=== PATIENT | female | born 1975 | race Caucasian/White ===

== ENCOUNTER → 2017-08-04 | Outpatient (CLI) | payer BC, OTHER ==
[~2017-08-04] MED LIST: ACE3 PO; CIM300 PO; DABR50CA PO; IBU200 PO; IBU800 PO; IRON1TAB55 PO; LEVO-85 PO; PROC10TA4 PO; TRAM2TAB PO; [UNRECOGNIZED DRUG - OTHER] IJ ONE
== END ==
LOC: SPU 14:28
PROVIDERS: ATTEND Internal Medicine
DX: C43.9 Malignant melanoma of skin, unspecified (principal)

== ENCOUNTER → 2017-08-25 | Outpatient (CLI) | payer BC, OTHER ==
[~2017-08-25] MED LIST changes: +[UNRECOGNIZED DRUG - OTHER] IJ ONE
== END ==
LOC: SPU 10:06
PROVIDERS: ATTEND Internal Medicine
DX: C79.9 Secondary malignant neoplasm of unspecified site (principal)
CPT/HCPCS: J9325

== ENCOUNTER → 2017-09-07 | Outpatient (CLI) | payer BC, OTHER ==
[~2017-09-07] MED LIST changes: -[UNRECOGNIZED DRUG - OTHER] IJ ONE
== END ==
LOC: SPU 07:41
PROVIDERS: ATTEND Internal Medicine
DX: C43.9 Malignant melanoma of skin, unspecified (principal); C79.9 Secondary malignant neoplasm of unspecified site
CPT/HCPCS: 96406; J9325

== ENCOUNTER → 2017-09-21 | Outpatient (CLI) | payer BC, OTHER ==
[~2017-09-21] MED LIST changes: +DEXA2TAB7 PO
== END ==
LOC: SPU 12:35
PROVIDERS: ATTEND Internal Medicine
DX: C43.9 Malignant melanoma of skin, unspecified (principal)

== ENCOUNTER 2017-10-02 14:12 | Emergency (ER) | payer BC ==
[~2017-10-02 14:12] MED LIST changes: -[UNRECOGNIZED DRUG - OTHER] IJ ONE
[2017-10-02] MEDS ORDERED: ONDANSETRON 4 MG/2 ML VIAL ONE (15:09)
--- NOTE | 2017-10-02 15:18 | ER Report ---
History and Physical Time Seen By MD: 14:32 Hx. of Stated Complaint: N/V SINCE WEDNESDAY. HPI/ROS CHIEF COMPLAINT: nausea and vomiting. HISTORY OF PRESENT ILLNESS: This is a 41-year-old female. She has a history of melanoma which is metastatic to lung and brain. Has been on chemotherapy in the past. Currently with full brain radiation that she just started last week on . Since starting the radiation, she had 2 treatments, and has had ongoing nausea and vomiting. She also has continued intermittent headaches which do not really seem any worse than what she has been experiencing. She has Zofran and Compazine at home but this is not helping. She denies any fevers or chills. 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 She is not experiencing any focal weakness at this time. No numbness. No real dizziness more than normal as well. She has not been able to eat or drink much since and is even throwing up her nausea medicines. No pain in the extremities or neck or back. She denies any chest pain or palpitations. She is not short of breath. She is urinating less but denies dysuria. No problems with her bowels. Allergies: Coded Allergies: latex (Verified Allergy, Mild, IRRITATES SKIN, 10/02/17) Home Meds Active Scripts Ondansetron (ZOFRAN ODT) 4 Mg Tab.rapdis, 4 MG PO Q6H Y for NAUSEA/VOMITING, # 20 TAB.JOY 0 Refills Prov:JULES ROSAS MD 10/02/17 Hydrocodone Bit/Acetaminophen (HYDROCODON-ACETAMINOPHEN 5-325) 1 Each Tablet, 1 EACH PO Q4H Y for PAIN, #12 TAB 0 Refills Prov:JULES ROSAS MD 10/02/17 Dexamethasone (DEXAMETHASONE) 2 Mg Tablet, 4 MG PO DAILY for 3 Days, #9 TAB Take 4mg daily x 3 days then 2mg daily x 3 days then DC Prov:[facility] M[facility]ER-BC, ONC 09/21/17 Reported Medications Prochlorperazine Maleate (Compazine) 10 Mg Tablet, PO QDAY 06/28/16 Ibuprofen (Motrin) 800 Mg Tab, 800 MG PO Q8H, #30 0 Refills TAKE NEEDED FOR PAIN 11/15/09 Reviewed Nurses Notes: Yes Hx Smoking: No Smoking Status: Never Smoker Exposure to Second Hand Smoke?: No Hx Substance Use Disorder: No Constitutional Vital Sign - Last 24 Hours 10/02/17 10/02/17 10/02/17 10/02/17 14:29 15:00 15:15 16:00 Temp 98.7 Pulse 84 76 72 Resp 16 B/P (MAP) 126/86 122/80 (94) 106/76 (86) Pulse Ox 91 93 95 O2 Delivery Room Air 10/02/17 10/02/17 10/02/17 10/02/17 16:00 16:30 16:45 17:00 Pulse 78 71 B/P (MAP) 106/76 (86) 100/67 (78) 106/71 (83) Pulse Ox 94 91 95 10/02/17 10/02/17 10/02/17 10/02/17 17:15 17:38 17:45 18:00 Pulse 68 66 B/P (MAP) 111/71 (84) Pulse Ox 98 89 10/02/17 18:13 Pulse 86 Resp 14 B/P (MAP) 113/78 (90) Pulse Ox 96 O2 Delivery Room Air Intake and Output 10/02/17 10/02/17 10/03/17 15:00 23:00 07:00 Intake Total 1500 ml Balance 1500 ml Physical Exam General Appearance: The patient is alert. No acute distress. Eyes: Pupils are equal, round. Reactive to light. No pallor, injection or icterus. Extraocular movements are intact. No nystagmus. Normal peripheral visual ross by direct confrontation. ENT: Mucous membranes are dry. Normal oral mucosa. Posterior oropharynx is normal. Normal nasal mucosa. Normal tympanic membranes and canals. Neck: Supple and non tender. Respiratory: Lungs are clear to auscultation. Cardiovascular: Regular rate and rhythm. No murmurs, gallops or rubs. Normal capillary refill. Gastrointestinal: Abdomen is soft and non tender. Nondistended. Normal active bowel sounds. Neurological: Alert and oriented x3. Cranial nerves II through XII show no acute deficits on my exam. No focal neurologic deficits in the extremities. Skin: Warm and dry. No rashes. Musculoskeletal: Extremities are nontender. Full range of motion. No tenderness in palpation of the spine. DIFFERENTIAL DIAGNOSIS: After history and physical exam, differential diagnosis was considered for headache, nausea and vomiting in a patient with radiation treatment to the brain for metastatic melanoma to the brain. Check labs, provide IV fluids, check urinalysis, provide antiemetics, and we'll check a CT scan to rule out any other problems causing the headaches and nausea and vomiting. Medical Decision Making Data Points Result Diagram: 10/02/17 0000 10/02/17 0000 Laboratory Hematology Test 10/02/17 00:00 10/02/17 17:32 Red Blood Count 5.50 M/uL (4.17-5.56) Mean Corpuscular Volume 89.8 fL (80.0-96.0) Mean Corpuscular Hemoglobin 30.8 pg (26.0-33.0) Mean Corpuscular Hemoglobin Concent 34.3 g/dL (32.0-36.0) Red Cell Distribution Width 13.7 % (11.5-14.5) Mean Platelet Volume 8.2 fL (7.2-11.1) Neutrophils (%) (Auto) % (39.4-72.5) Lymphocytes (%) (Auto) % (17.6-49.6) Monocytes (%) (Auto) % (4.1-12.4) Eosinophils (%) (Auto) % (0.4-6.7) Basophils (%) (Auto) % (0.3-1.4) Nucleated RBC Relative Count (auto) /100WBC Neutrophils # (Auto) K/uL (2.0-7.4) Lymphocytes # (Auto) K/uL (1.3-3.6) Monocytes # (Auto) K/uL (0.3-1.0) Eosinophils # (Auto) K/uL (0.0-0.5) Basophils # (Auto) K/uL (0.0-0.1) Nucleated RBC Absolute Count (auto) K/uL Neutrophils % (Manual) 74 % (39.4-72.5) Lymphocytes % (Manual) 19 % (17.6-49.6) Monocytes % (Manual) 5 % (4.1-12.4) Eosinophils % (Manual) 1 % (0.4-6.7) Basophils % (Manual) 1 % (0.3-1.4) Erythrocyte Sedimentation Rate 7 mm/HOUR (0-20) Sodium Level 140 mmol/L (137-145) Potassium Level 4.1 mmol/L (3.5-5.0) Chloride Level 103 mmol/L (98-107) Carbon Dioxide Level 21 mmol/L (22-31) Blood Urea Nitrogen 14 mg/dl (7-18) Creatinine 0.80 mg/dl (0.52-1.04) Glomerular Filtration Rate Calc > 60.0 Random Glucose 104 mg/dl (75-110) Calcium Level 11.8 mg/dl (8.4-10.2) Total Bilirubin 2.0 mg/dl (0.2-1.3) Aspartate Amino Transf (AST/SGOT) 29 U/L (0-35) Alanine Aminotransferase (ALT/SGPT) 55 U/L (0-56) Alkaline Phosphatase 105 U/L (0-126) C-Reactive Protein < 0.5 mg/dl (<1.0) Total Protein 7.6 gm/dl (6.3-8.2) Albumin 4.5 g/dl (3.5-5.0) Urine Color Yellow Urine Clarity Clear Urine pH 6.0 pH (4.8-9.5) Urine Specific Stanton 1.024 Urine Protein 100 mg/dL (NEGATIVE) Urine Glucose (UA) Negative mg/dL (NEGATIVE) Urine Ketones 20 mg/dL (NEGATIVE) Urine Blood Negative (NEGATIVE) Urine Nitrite Negative (NEGATIVE) Urine Bilirubin Negative (NEGATIVE) Urine Urobilinogen 4.0 mg/dL (0.2-1.9) Urine Leukocyte Esterase Negative (NEGATIVE) Urine RBC 2 /HPF (0-2/HPF) Urine WBC 4 /HPF (0-5/HPF) Urine Squamous Epithelial Cells Many /LPF (</=FEW) Urine Bacteria Few /HPF (NONE-FEW) Urine Hyaline Casts Few /LPF (NONE-FEW) Urine Mucus Few /HPF (NONE-FEW) Chemistry Test 10/02/17 00:00 10/02/17 17:32 White Blood Count 11.5 k/uL (4.5-11.0) Red Blood Count 5.50 M/uL (4.17-5.56) Hemoglobin 17.0 g/dL (12.0-16.0) Hematocrit 49.4 % (34.0-47.0) Mean Corpuscular Volume 89.8 fL (80.0-96.0) Mean Corpuscular Hemoglobin 30.8 pg (26.0-33.0) Mean Corpuscular Hemoglobin Concent 34.3 g/dL (32.0-36.0) Red Cell Distribution Width 13.7 % (11.5-14.5) Platelet Count 347 K/uL (150-450) Mean Platelet Volume 8.2 fL (7.2-11.1) Neutrophils (%) (Auto) % (39.4-72.5) Lymphocytes (%) (Auto) % (17.6-49.6) Monocytes (%) (Auto) % (4.1-12.4) Eosinophils (%) (Auto) % (0.4-6.7) Basophils (%) (Auto) % (0.3-1.4) Nucleated RBC Relative Count (auto) /100WBC Neutrophils # (Auto) K/uL (2.0-7.4) Lymphocytes # (Auto) K/uL (1.3-3.6) Monocytes # (Auto) K/uL (0.3-1.0) Eosinophils # (Auto) K/uL (0.0-0.5) Basophils # (Auto) K/uL (0.0-0.1) Nucleated RBC Absolute Count (auto) K/uL Neutrophils % (Manual) 74 % (39.4-72.5) Lymphocytes % (Manual) 19 % (17.6-49.6) Monocytes % (Manual) 5 % (4.1-12.4) Eosinophils % (Manual) 1 % (0.4-6.7) Basophils % (Manual) 1 % (0.3-1.4) Erythrocyte Sedimentation Rate 7 mm/HOUR (0-20) Glomerular Filtration Rate Calc > 60.0 Calcium Level 11.8 mg/dl (8.4-10.2) Total Bilirubin 2.0 mg/dl (0.2-1.3) Aspartate Amino Transf (AST/SGOT) 29 U/L (0-35) Alanine Aminotransferase (ALT/SGPT) 55 U/L (0-56) Alkaline Phosphatase 105 U/L (0-126) C-Reactive Protein < 0.5 mg/dl (<1.0) Total Protein 7.6 gm/dl (6.3-8.2) Albumin 4.5 g/dl (3.5-5.0) Urine Color Yellow Urine Clarity Clear Urine pH 6.0 pH (4.8-9.5) Urine Specific Stanton 1.024 Urine Protein 100 mg/dL (NEGATIVE) Urine Glucose (UA) Negative mg/dL (NEGATIVE) Urine Ketones 20 mg/dL (NEGATIVE) Urine Blood Negative (NEGATIVE) Urine Nitrite Negative (NEGATIVE) Urine Bilirubin Negative (NEGATIVE) Urine Urobilinogen 4.0 mg/dL (0.2-1.9) Urine Leukocyte Esterase Negative (NEGATIVE) Urine RBC 2 /HPF (0-2/HPF) Urine WBC 4 /HPF (0-5/HPF) Urine Squamous Epithelial Cells Many /LPF (</=FEW) Urine Bacteria Few /HPF (NONE-FEW) Urine Hyaline Casts Few /LPF (NONE-FEW) Urine Mucus Few /HPF (NONE-FEW) Urinalysis Test 10/02/17 17:32 Urine Color Yellow Urine Clarity Clear Urine pH 6.0 pH (4.8-9.5) Urine Specific Stanton 1.024 Urine Protein 100 mg/dL (NEGATIVE) Urine Glucose (UA) Negative mg/dL (NEGATIVE) Urine Ketones 20 mg/dL (NEGATIVE) Urine Blood Negative (NEGATIVE) Urine Nitrite Negative (NEGATIVE) Urine Bilirubin Negative (NEGATIVE) Urine Urobilinogen 4.0 mg/dL (0.2-1.9) Urine Leukocyte Esterase Negative (NEGATIVE) Urine RBC 2 /HPF (0-2/HPF) Urine WBC 4 /HPF (0-5/HPF) Urine Squamous Epithelial Cells Many /LPF (</=FEW) Urine Bacteria Few /HPF (NONE-FEW) Urine Hyaline Casts Few /LPF (NONE-FEW) Urine Mucus Few /HPF (NONE-FEW) EKG/Imaging Imaging CT Head without contrast Indication: Headache and dizziness. 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 Comparison: None available Technique: Axial CT images were obtained through the brain from the skull base to the vertex without administration of IV contrast. Reformatted coronal and sagittal images were also obtained. One of the following dose optimization techniques was utilized in the performance of this exam: automated exposure control; adjustment of the mA and/ or kV according to the patient's size; or use of an iterative reconstruction technique. Specific details can be referenced in the facility's radiology CT exam operational policy. Findings: No intracranial bleed, midline shift, extra-axial fluid collection or hydrocephalus. The right lateral temporal lobe does show a 1.6 cm hyperdense mass with mild surrounding edema. There is no indication of midline shift. Along the midline of the brain just above the ventricles is a hyperdense nodule measuring 6 mm without edema or sequelae. No other discrete lesions are identified. No other abnormal density. Bowens/white matter differentiation appears normal. Bony structures show no fractures or lesions. The visualized paranasal sinuses and mastoid air cells are clear. IMPRESSION: 1. No indication of intracranial bleed. 2. The right temporal lobe does show a metastatic lesion with mild surrounding edema without significant mass effect or midline shift. There is a second smaller lesion in the midline just above the ventricles without sequelae. Report Dictated By: Adria Paredes at 10/02/2017 3:52 PM ED Course/Re-evaluation Clinical Indication for ER IV: Hydration, IV Access ED Course IV was started and the patient was given Zofran to help her nausea followed by a liter of normal saline. Had continued nausea so gave another dose of Zofran and also gave some morphine to help with her headache pain. CT scan was obtained that did not show any signs of diffuse swelling or bleeding. She does have the metastatic lesions with some mild localized swelling around the one in the right temporal lobe. This was reassuring. Labs otherwise unremarkable other than a little volume depletion. She felt better after liter of normal saline and we did give her a second liter. Discharged home with some Lortab for pain and Zofran for nausea and will follow-up with her regular doctor for her current radiation treatments. 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 Take Lortab 5/325, one every 4 hours as needed for pain. Follow-up with your regular doctor this week for re-evaluation. Problem Qualifiers Primary Impression: Nausea & vomiting Vomiting type: unspecified Vomiting Intractability: unspecified Qualified Codes: R11.2 - Nausea with vomiting, unspecified Additional Impressions: Headache Headache type: unspecified Headache chronicity pattern: acute headache Intractability: not intractable Qualified Codes: R51 - Headache JULES ROSAS MD Oct 02, 2017 15:18
[2017-10-02] MEDS ORDERED: NS(*) 0.9% 1000 ML BAG 1,000 ML IV ONE ×2 (15:20→16:30)
[2017-10-02 15:59] LABS: PLATELET COUNT, AUTOMATED 347 K/uL (150-450)
--- NOTE | 2017-10-02 16:02 | RADIOLOGY IMAGING REPORT ---
FACILITY: [facility] PATIENT NAME: Keyona Dill : 1975 MR: [id number] V: [id number] EXAM DATE: ORDERING PHYSICIAN: JULES ROSAS TECHNOLOGIST: Location: [facility] [place] Patient: Keyona Dill : 1975 Visit/Account:[id number] Date of Sevice: 10/02/2017 CT Head without contrast Indication: Headache and dizziness. 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 Comparison: None available Technique: Axial CT images were obtained through the brain from the skull base to the vertex without administration of IV contrast. Reformatted coronal and sagittal images were also obtained. One of the following dose optimization techniques was utilized in the performance of this exam: autom ated exposure control; adjustment of the mA and/or kV according to the patient's size; or use of an i terative reconstruction technique. Specific details can be referenced in the facility's radiology CT exam operational policy. Findings: No intracranial bleed, midline shift, extra-axial fluid collection or hydrocephalus. The right latera l temporal lobe does show a 1.6 cm hyperdense mass with mild surrounding edema. There is no indicatio n of midline shift. Along the midline of the brain just above the ventricles is a hyperdense nodule m easuring 6 mm without edema or sequelae. No other discrete lesions are identified. No other abnormal density. Bowens/white matter differentiation appears normal. Bony structures show no fractures or lesions. The visualized paranasal sinuses and mastoid air cells are clear. IMPRESSION: 1. No indication of intracranial bleed. 2. The right temporal lobe does show a metastatic lesion with mild surrounding edema without signific ant mass effect or midline shift. There is a second smaller lesion in the midline just above the vent ricles without sequelae. Report Dictated By: Adria Paredes at 10/02/2017 3:52 PM Report E-Signed By: Adria Paredes at 10/02/2017 3:58 PM WSN:[id number]
[2017-10-02] MEDS ORDERED: ONDANSETRON 4 MG/2 ML VIAL IVP ONE (16:35)
[2017-10-02] MEDS ORDERED: MORPHINE 4 MG/ML SDV IVP ONE (16:35)
[2017-10-02] MEDS ORDERED: ONDA4TAB PO (17:30)
[2017-10-02] MEDS ORDERED: LOR5/325 PO (17:30)
[2017-10-02 18:13] VITALS: BP 113/78
[2017-10-04] MEDS ORDERED: LORA-630 PO (13:12)
[2017-10-04] MEDS ORDERED: LORA-1455 PO (14:14)
== END 2017-10-02 18:14 | disposition home or self-care (01) ==
LOC: ER 14:32
DX: R51 Headache (principal); R11.2 Nausea with vomiting, unspecified; C43.9 Malignant melanoma of skin, unspecified; C79.31 Secondary malignant neoplasm of brain
CPT/HCPCS: 70450; 81001; 85025; 85651; 86140; 96361; 96374; 96375; 96376; 99284; J2270; J2405; J7030; 82040; 82247; 82310; 82374; 82435; 82565; 82947; 84075; 84132; 84155; 84295; 84450; 84460; 84520

== ENCOUNTER → 2017-10-05 | Outpatient (CLI) | payer BC ==
[~2017-10-05] MED LIST changes: +LOR5/325 PO; +LORA-1455 PO; +LORA-630 PO; +ONDA4TAB PO; +[UNRECOGNIZED DRUG - OTHER] IJ ONE
[2017-10-05 13:10] VITALS: BP 125/76
== END ==
LOC: SPU 12:36
PROVIDERS: ATTEND Internal Medicine
DX: C43.9 Malignant melanoma of skin, unspecified (principal)
CPT/HCPCS: 96406; J9325

== ENCOUNTER 2017-10-18 16:00 | Outpatient (RCR) | payer BC ==
[2017-10-14] MEDS: NS(*) 0.9% 1000 ML BAG 1,000 ML IV PRN ×2 (15:33→16:37)
[2017-10-14 15:39] LABS: PLATELET COUNT, AUTOMATED 252 K/uL (150-450)
[2017-10-14 16:41] VITALS: BP 125/72
[2017-10-15 14:41] VITALS: BP 114/83
[2017-10-15] MEDS: NS(*) 0.9% 1000 ML BAG 1,000 ML IV PRN (14:51)
[2017-10-15 16:01] VITALS: BP 122/80
[2017-10-16 08:41] VITALS: BP 108/74
[2017-10-16] MEDS: DEXAMETHASONE SOD 4 MG/ML VIAL IVP PRN (08:59)
[2017-10-16] MEDS: NS(*) 0.9% 1000 ML BAG 1,000 ML IV PRN (08:59)
[2017-10-16 09:58] VITALS: BP 117/80
[2017-10-17 08:45] VITALS: BP 117/75
[2017-10-17] MEDS: NS(*) 0.9% 1000 ML BAG 1,000 ML IV PRN (08:50)
[2017-10-17] MEDS: DEXAMETHASONE SOD 4 MG/ML VIAL IVP PRN (08:51)
[2017-10-17 09:59] VITALS: BP 115/74
[~2017-10-18 16:00] MED LIST changes: +DEXTROSE 5%(*) 100 ML BAG 100 ML IVPB PRN; +LIDOCAINE/SOD BICARB 8.4% SYR ID PRN; +LORazepam 2 MG/ML VIAL IVP PRN; +NS(*) 0.9% 100 ML BAG 100 ML IVPB PRN; -[UNRECOGNIZED DRUG - OTHER] IJ ONE
[2017-10-18] MEDS ORDERED: NS(*) 0.9% 1000 ML BAG 1,000 ML IV PRN (16:40)
[2017-10-18 17:53] VITALS: BP 117/86
--- NOTE | 2017-10-20 04:40 | SCHUSTER ONCOLOGY NOTE ---
EVENT DATE: October 18, 2017 CHIEF COMPLAINT/REASON FOR VISIT The patient is a very pleasant 41-year-old female with metastatic melanoma currently on nivolumab and TVEC with diffuse brain metastases, having finished whole brain radiation therapy, here for followup. HISTORY OF PRESENT ILLNESS The patient returns. She has been on multiple clinical trials for her metastatic melanoma, and is currently on off-label TVEC and nivolumab, as the clinical trial for this is currently in development and should be open soon. She is responding systemically, however, she is struggling with diffuse brain metastases, and finished whole brain radiation therapy. She had numerous side effects from this including hearing loss, profound nausea, fatigue. Now that we have completed the whole brain radiation therapy and she received steroids over the weekend, she is feeling better. We would like to minimize the steroid use due to the concern that it affects the TVEC and nivolumab, and so we plan to give fluids alone without steroids today. If her nausea relapses, though, we will need to reconsider this. At our last visit, we had an extensive conversation about goals of care, and she would like to continue with therapy. They have an excellent understanding about her prognosis and potential for need for hospice in the future. ONCOLOGIC HISTORY Diagnosed with stage IV melanoma in May of 2016, BRAF mutated. She progressed on ipilimumab on clinical trial and then started dabrafenib and trametinib on clinical trial. She tolerated this well for quite some time, but then unfortunately progressed. We are now utilizing nivolumab plus TVEC, as she had subcutaneous localized metastatic disease, but then this was complicated by metastases, and she has received stereotactic radiosurgery in [place]. These are now too numerous, and we are progressing to whole brain radiation therapy while continuing the TVEC and nivolumab. 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 Strong shashank, in the [employer]. present again today. REVIEW OF SYSTEMS CONSTITUTIONAL: No fevers, chills, significant weight change. HEENT: Positive presbycusis. No significant headache. No vision changes at this time. CARDIOVASCULAR: No chest pain, dyspnea on exertion or edema. RESPIRATORY: No shortness of breath, wheeze, cough. GI: No nausea, vomiting, diarrhea or constipation. : No dysuria or hematuria. MUSCULOSKELETAL: No weakness or joint pain. Positive fatigue. PSYCHIATRIC: No anxiety or depression. She is in good spirits. The remainder of the 14-point review of systems is otherwise negative. PHYSICAL EXAMINATION: VITAL SIGNS: Blood pressure 125/72, pulse 80, respiratory rate 16, temperature 97.7 Fahrenheit, oxygen saturation 92% on room air. Weight 79.4 kg. Pain 0/10 , fatigue 0/10. GENERAL: Stable condition, resting comfortably in the wheelchair. ECOG performance status of 2. HEENT: Positive alopecia. Positive presbycusis, particularly in the right ear. CARDIOVASCULAR: Regular rate and rhythm. LUNGS: Clear. ABDOMEN: Soft. EXTREMITIES: No clubbing, cyanosis or edema. SKIN: Her lesions on the chest wall and breast have improved. Continue the TVEC and Opdivo. She is scheduled for treatment tomorrow. Remainder of physical exam unremarkable. IMPRESSION AND PLAN The patient is a pleasant 41-year-old female with stage IV malignant melanoma. Currently on nivolumab, TVEC and whole brain radiation therapy. She finished the whole brain radiation therapy and is recovering. We discussed management of her nausea. I am hopeful that the whole brain radiation therapy will help control the brain metastases, and she will have significant amount of time with quality of life. If this is not effective, though, I expect her life expectancy to be measured in weeks to a few months. We will continue the systemic therapy with nivolumab and TVEC and hope that it affects the brain as well, as it is currently being studied at [facility] for patients with brain metastases. Fluids daily as needed for dehydration, lightheadedness, nausea. We will need to utilize dexamethasone for nausea if she relapses. I answered all of her questions today. Billing: Return visit level 4. Total time 30 minutes, counseling time 20. High risk, high complexity. MTDD
== END 2017-10-20 14:08 | disposition home or self-care (01) ==
LOC: SPU 16:00
PROVIDERS: ATTEND Registered Nurse
DX: R11.2 Nausea with vomiting, unspecified (principal)
CPT/HCPCS: 36415; 85025; 96360; 96361; 96374; J1100; J7030; 82040; 82247; 82310; 82374; 82435; 82565; 82947; 84075; 84132; 84155; 84295; 84450; 84460; 84520

== ENCOUNTER → 2017-10-19 | Outpatient (CLI) | payer BC, OTHER ==
[~2017-10-19] MED LIST changes: -DEXTROSE 5%(*) 100 ML BAG 100 ML IVPB PRN; -LIDOCAINE/SOD BICARB 8.4% SYR ID PRN; -LORazepam 2 MG/ML VIAL IVP PRN; -NS(*) 0.9% 100 ML BAG 100 ML IVPB PRN; +[UNRECOGNIZED DRUG - OTHER] IJ ONE
== END ==
LOC: SPU 13:29
PROVIDERS: ATTEND Internal Medicine
DX: C43.9 Malignant melanoma of skin, unspecified (principal); C79.9 Secondary malignant neoplasm of unspecified site
CPT/HCPCS: 96406; J9325

== ENCOUNTER 2017-10-26 10:00 | Outpatient (RCR) | payer BC ==
[2017-07-30 13:06] VITALS: BP 140/86
[2017-07-30] MEDS: LIDOCAINE/SOD BICARB 8.4% SYR ID PRN (14:19)
[2017-07-30] MEDS: NS(*) 0.9% 100 ML BAG 100 ML IVPB PRN (14:19)
--- NOTE | 2017-07-30 15:05 | ONC Progress Note - NP.Halsey ---
Patient History Date of Service Jul 30, 2017 Reason For Visit/HPI Patient is seen in the clinic today for cycle 2 of Opdivo for her stage IV metastatic melanoma. Patient reports that posterior 1st cycle she had no side effects. She continues to feel well. Prior to starting treatment she did have outbreaks of psoriasis and has had a flare over the last week. She has steroid cream but was not sure if she should use it. We discussed that it was okay to use it as needed. Patient had pain where previous surgeries have taken place and the increasing disease is in that area. Pain is tolerable, reported more uncomfortable. She also has some neuropathy in her fingers thought to be more in the left arm and positional. Her increasing tumors and previous surgery are also in the left axilla. She has no concerns today. Patient was scheduled to start T VEC therapy, unfortunately due to the holidays the shipping has been delayed. Patient will receive treatment on 08/04/2017. She reports having education down at [facility]. She has EMLA cream to place over the sites to be injected. She verbalized understanding and possible side effects. Problem List (1) Nausea & vomiting (2) Fever (3) Melanoma (4) Effect of chemotherapy Oncology History Ms. Dill is a young female of [place] ancestry who grew up in [place] and currently resides in [place], [place]. She does not have a history of lots of sun exposure throughout her life. However, she does recall having suffered a few sunburns. She also has a history of many moles in view of which she has been protecting herself from the sun. In any case, she noticed change in a pigmented lesion located on her left lower back which became raised and bled on, a least, one occasion. She went in to her power shovel mechanic for evaluation and a biopsy was performed which was interpreted as a superficial spreading melanoma with a nodular component 4.4 mm thick, with ulceration. The margins were involved by both invasive melanoma and melanoma in situ. The deep margin was negative. There were 21 mitosis per square mm. There were no microsatellites , lymphovascular invasion was indeterminate. There was no perineural invasion or regression. A second biopsy was performed from her left lateral back and that was interpreted as a melanoma in situ arising in a pre-existing nevus. Four other lesions were excised, two of which revealed moderate cytologic atypia and one has features of a congenital nevus.Since last visit she developed lymphadenopathy confirmed to be melanoma in view of which she had WLE and LNDby Dr Marrufo 11/28/2015 which showed: A) Lymph nodes, left axilla, lymph node dissection: - Two out of twenty one lymph nodes, positive for metastatic melanoma (2/21)- Largest tumor focus: 8mm- B) Skin, left lower back, excision: - Residual invasive melanoma in association with melanoma in situ and prior biopsy site changes- Microsatellite nodule identified- No evidence of lymphovascular or perineural invasion- Margins of excision are free of tumor- She is a Stage IIIC January 2016 - S1404 clinical trial - standard ipi arm adjuvant treatment; starting date is 02/13/16 Skipped week 7 due to colitis and received prednisone April 30, 2016 - Ready to resume May 2016 - Progressive disease on ipi adjuvant trial. Transition to Dabrafenib and Tremetinib on trial. Dose adjustments required for dabrafenib and continued steroid to suppress fever. September 2016 - Imaging shows stable disease. Indeterminate subcentimeter nodule will be followed. November and March 2017 - PET/CT shows CR, no evidence of disease. May 2017 - CT imaging still shows CR, no evidence of disease June 2017 -skin relapse, biopsy-proven. Clinical trial stopped on 06/10/17-Started 07-16-17 Nivolumab q 2 weeks July metastatic melanoma involving the brain. MRI revealed 8.1 x 7.6 x 6.4mm area within the lateral anterior right temporal lobe. Patient completed stereotactic radiotherapy to treat for lesions in 1 fraction totaling 20Gy. August 2017 Start T VEC Psychosocial History Social History Patient is Alcohol History She denies abuse Smoking Status: Never Smoker Exposure to Second Hand Smoke?: No Medications and Allergies Reported Medications Prochlorperazine Maleate (Compazine) 10 Mg Tablet, PO QDAY 06/28/16 Ibuprofen (Motrin) 800 Mg Tab, 800 MG PO Q8H, #30 0 Refills TAKE NEEDED FOR PAIN 11/15/09 Discontinued Reported Medications Dabrafenib Mesylate (TAFINLAR) 50 Mg Capsule, PO BID 06/09/16 Trametinib Dimethyl Sulfoxide (MEKINIST) 2 Mg Tablet, PO DAILY 06/09/16 Allergies: Coded Allergies: latex (Verified Allergy, Mild, IRRITATES SKIN, 06/28/16) Review of System/Physical Exam Review of Systems All Systems Reviewed/Normal: Yes, Except as Noted Musculoskeletal: Positive for Other (pain in the previous surgical sites as listed above) Neurologic: Tingling of Hands (see above) Skin: Positive for Dry Skin (see above) Physical Exam Vital Signs Temperature: 98.0 Pulse: 92 BP Systolic: 140 BP Diastolic: 86 Respiratory Rate: 16 O2 SAT: 93 O2 Delivery: Height (inches) 64.00 Weight lb: 164 Weight oz: Weight Kg (Delmer): Pain: 0 ECOG Score: 0 General: Stable, Well Developed, Well Nourished, Not In Acute Distress HEENT: No Trauma, No Conjunctivitis, No Icterus, No Mucositis, No Oral Thrush Neck: Supple Lungs: Clear to Auscultation Heart: Regular Rate, Regular Rhythm Abdomen: Soft and Nontender, No Hepatosplenomegaly Extremities: No Cyanosis, No Clubbing, No Edema Psychiatric: Mood appears normal, Affect appears normal Skin: No Bruising, No Purpura, Other Diagnostic Studies Diagnostic Studies Laboratory Laboratory Tests 07/30/17 13:24 Laboratory Tests 07/30/17 13:24: Sodium Level 139, Potassium Level 4.0, Chloride Level 105, Carbon Dioxide Level 23, Blood Urea Nitrogen 10, Creatinine 0.60, Glomerular Filtration Rate Calc > 60.0, Random Glucose 87, Calcium Level 10.9, Total Bilirubin 1.0, Aspartate Amino Transf (AST/SGOT) 29, Alanine Aminotransferase (ALT/SGPT) 35, Alkaline Phosphatase 85, Total Protein 7.6, Albumin 4.4 Assessment and Plan Assessment & Plan Patient is a 41-year-old female with recent history of metastatic melanoma involving the brain and lymph nodes in the left axilla and left lower back. Pathologic stage from 05/12/2016: Stage IV. Be Rath mutated. See oncology history. Patient recently came completed stereotactic radiotherapy to brain lesion 1 dose at 20 Gy. Patient started on Opdivo on 07/16/2017 without difficulty. Patient received Opdivo cycle 2 today. She will start TVEC on 2017. Patient follow with provider with treatments. I personally spent a total of 20 minutes. Of that 20 minutes was counseling/ coordination of patient's care. See my note above for details. Copies to: TRACY MARINO MD, NANCY J HAT CONE INSPECTOR-BC, ONC Jul 30, 2017 15:05
[2017-08-04 14:17] VITALS: BP 137/83
[2017-08-13] MEDS: NS(*) 0.9% 100 ML BAG 100 ML IVPB PRN (13:15)
[2017-08-13 13:48] VITALS: BP 110/73
[2017-08-13 16:03] VITALS: BP 109/62
[2017-08-25 08:13] VITALS: BP 111/51
[2017-08-25 09:37] LABS: PLATELET COUNT, AUTOMATED 286 K/uL (150-450)
[2017-08-25] MEDS: LIDOCAINE/SOD BICARB 8.4% SYR ID PRN (10:14)
[2017-08-25] MEDS: NS(*) 0.9% 100 ML BAG 100 ML IVPB PRN (10:14)
--- NOTE | 2017-08-25 11:26 | ONC Progress Note - NP.Halsey ---
Patient History Date of Service Aug 25, 2017 Reason For Visit/HPI Patient is seen in the clinic today with Opdivo cycle 4 and T VEC cycle 3 stage IV metastatic melanoma. Patient continues to report that she has minimal to no side effects other than development of increased fatigue and generalized body aches after completion of T-VEC. She reports that the masses in the breast tissue and left axilla has significantly decreased in size. She did have a headache 2 days ago thought to be a migraine which causes sinus pain and pressure and I pressure on the left side. This is resolved. Patient is afraid to take Tylenol or ibuprofen. Patient does have a mass in the frontal lobe and subpleural lobe and is scheduled for radiation treatment tomorrow in [place]. She denies any recent mentation changes, speech changes or difficulty with word retrieval. Patient shared that previously she did have difficulty with word retrieval and often switched one-word for another and then immediately new that it was incorrect and was able to correct it. Problem List (1) Metastasis to brain (2) Melanoma Oncology History Ms. Dill is a young female of [place] ancestry who grew up in [place] and currently resides in [place], [place]. She does not have a history of lots of sun exposure throughout her life. However, she does recall having suffered a few sunburns. She also has a history of many moles in view of which she has been protecting herself from the sun. In any case, she noticed change in a pigmented lesion located on her left lower back which became raised and bled on, a least, one occasion. She went in to her counter cutter for evaluation and a biopsy was performed which was interpreted as a superficial spreading melanoma with a nodular component 4.4 mm thick, with ulceration. The margins were involved by both invasive melanoma and melanoma in situ. The deep margin was negative. There were 21 mitosis per square mm. There were no microsatellites , lymphovascular invasion was indeterminate. There was no perineural invasion or regression. A second biopsy was performed from her left lateral back and that was interpreted as a melanoma in situ arising in a pre-existing nevus. Four other lesions were excised, two of which revealed moderate cytologic atypia and one has features of a congenital nevus.Since last visit she developed lymphadenopathy confirmed to be melanoma in view of which she had WLE and LNDby Dr Marrufo 11/28/2015 which showed: A) Lymph nodes, left axilla, lymph node dissection: - Two out of twenty one lymph nodes, positive for metastatic melanoma (2/21)- Largest tumor focus: 8mm- B) Skin, left lower back, excision: - Residual invasive melanoma in association with melanoma in situ and prior biopsy site changes- Microsatellite nodule identified- No evidence of lymphovascular or perineural invasion- Margins of excision are free of tumor- She is a Stage IIIC January 2016 - S1404 clinical trial - standard ipi arm adjuvant treatment; starting date is 02/13/16 Skipped week 7 due to colitis and received prednisone April 30, 2016 - Ready to resume May 2016 - Progressive disease on ipi adjuvant trial. Transition to Dabrafenib and Tremetinib on trial. Dose adjustments required for dabrafenib and continued steroid to suppress fever. September 2016 - Imaging shows stable disease. Indeterminate subcentimeter nodule will be followed. November and March 2017 - PET/CT shows CR, no evidence of disease. May 2017 - CT imaging still shows CR, no evidence of disease June 2017 -skin relapse, biopsy-proven. Clinical trial stopped on 06/10/17-Started 07-16-17 Nivolumab q 2 weeks July metastatic melanoma involving the brain. MRI revealed 8.1 x 7.6 x 6.4mm area within the lateral anterior right temporal lobe. Patient completed stereotactic radiotherapy to treat for lesions in 1 fraction totaling 20Gy. 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 working due to side effects and the need to keep the children in the daycare safe from her exposure Alcohol History She denies abuse Smoking History: No Smoking Status: Never Smoker Exposure to Second Hand Smoke?: No Medications and Allergies Reported Medications Prochlorperazine Maleate (Compazine) 10 Mg Tablet, PO QDAY 06/28/16 Ibuprofen (Motrin) 800 Mg Tab, 800 MG PO Q8H, #30 0 Refills TAKE NEEDED FOR PAIN 11/15/09 Allergies: Coded Allergies: latex (Verified Allergy, Mild, IRRITATES SKIN, 06/28/16) Review of System/Physical Exam Review of Systems All Systems Reviewed/Normal: Yes, Except as Noted Hematologic: Positive for Fatigue, Positive for Weakness Musculoskeletal: Positive for Other (generalized joint pain as listed above) Neurologic: Headaches (see above) Skin: Positive for Dry Skin Physical Exam Vital Signs Temperature: 97.9 Pulse: 76 BP Systolic: 111 BP Diastolic: 51 Respiratory Rate: 16 O2 SAT: 93 O2 Delivery: Height (inches) 64.00 Weight lb: 185 Weight oz: Weight Kg (Delmer): [phone] Pain: 2 ECOG Score: 1 General: Stable, Well Developed, Well Nourished, Not In Acute Distress HEENT: No Trauma, No Conjunctivitis, No Icterus, No Mucositis, No Oral Thrush, No Sinus Tenderness Neck: Supple Lungs: Clear to Auscultation Heart: Regular Rate, Regular Rhythm Abdomen: Soft and Nontender, No Hepatosplenomegaly, Other (bowel sounds are active) Extremities: No Cyanosis, No Clubbing, No Edema Lymphadenopathy: No Cervical, No Subclavicular Psychiatric: Mood appears normal, Affect appears normal Skin: No Bruising, No Purpura, Other Other Patient received T VEC to the masses in the left breast tissue and axilla/chest wall. This area was not assessed by myself today but was assessed by nursing staff with the injections. It is reported that it is significantly decreased in size. Areas dressed Diagnostic Studies Diagnostic Studies Laboratory Laboratory Tests 08/25/17 00:00 08/25/17 08:25 Laboratory Tests 08/25/17 00:00: Sodium Level 138, Potassium Level 4.0, Chloride Level 104, Carbon Dioxide Level 25, Blood Urea Nitrogen 8, Creatinine 0.70, Glomerular Filtration Rate Calc > 60.0, Random Glucose 89, Calcium Level 10.5, Magnesium Level 1.6, Total Bilirubin 1.2, Aspartate Amino Transf (AST/SGOT) 26, Alanine Aminotransferase ( ALT/SGPT) 34, Alkaline Phosphatase 74, Total Protein 6.7, Albumin 3.8 08/25/17 08:25: White Blood Count 7.0, Red Blood Count 4.68, Hemoglobin 14.7, Hematocrit 42.4, Mean Corpuscular Volume 90.5, Mean Corpuscular Hemoglobin 31.4, Mean Corpuscular Hemoglobin Concent 34.7, Red Cell Distribution Width 12.6, Platelet Count 286, Mean Platelet Volume 8.1, Neutrophils (%) (Auto) 61.7, Lymphocytes (% ) (Auto) 25.5, Monocytes (%) (Auto) 7.7, Eosinophils (%) (Auto) 4.0, Basophils ( %) (Auto) 1.1, Nucleated RBC Relative Count (auto) 0.0, Neutrophils # (Auto) 4.3 , Lymphocytes # (Auto) 1.8, Monocytes # (Auto) 0.5, Eosinophils # (Auto) 0.3, Basophils # (Auto) 0.1, Nucleated RBC Absolute Count (auto) 0.00 Assessment and Plan Assessment & Plan Patient is a 41-year-old female with recent history of metastatic melanoma involving the brain and lymph nodes in the left axilla and left lower back. Pathologic stage from 05/12/2016: Stage IV. Be Rath mutated. Patient recently completed stereotactic radiotherapy to brain lesion 1 dose at 20 Gy with a good response. Unfortunately patient has 2 new areas and will receive stereotactic radiotherapy to those brain lesions tomorrow. She continues to have an MRI every 3 months.. Patient started on Opdivo on 07/16/2017 without difficulty. Patient received Opdivo cycle 4 today. She started with TVEC injections on 08/04/2017 and completed cycle 3 today. He is having a good response with decreased size of each lesion in the left chest wall and breast tissue. Patient experiences generalized body aches and fatigue posttreatment. She will try Claritin to see if it decreases the histamine response and helps with side effects. She is encouraged to use Tylenol or ibuprofen although she does not like to use them. Patient follow with provider with treatments. I personally spent a total of 20 minutes. Of that 20 minutes was counseling/ coordination of patient's care. See my note above for details. Copies to: SUSAN AMEZCUA NANCY J FNP-BC, ONC Aug 25, 2017 11:26
[2017-09-06 11:09] VITALS: BP 123/75
[2017-09-07 15:01] VITALS: BP 122/83
[2017-09-07] MEDS: LIDOCAINE/SOD BICARB 8.4% SYR ID PRN (16:07)
[2017-09-07] MEDS: NS(*) 0.9% 100 ML BAG 100 ML IVPB PRN (16:07)
[2017-09-07 16:49] VITALS: BP 118/80
--- NOTE | 2017-09-07 20:10 | ONCOLOGY FOLLOW UP NOTE ---
EVENT DATE: September 06, 2017 CHIEF COMPLAINT/REASON FOR VISIT Mrs. Dill is a very pleasant 41-year-old female with metastatic melanoma currently on nivolumab and TVEC here for followup. HISTORY OF PRESENT ILLNESS Mrs. Dill returns. She has been no multiple clinical trials for her metastatic melanoma, is currently on off-label TVEC and nivolumab, as the clinical trial is currently on hold for this regimen. She has received two to three doses of TVEC and is responding brilliantly. The lesions on the left breast and chest wall are dramatically improved. There continues to be pigmentation there and some thickening, but that is to be expected. She feels much better. She does get flu-like symptoms after each treatment, but this is also expected. She is very pleased with how she is doing so far. ONCOLOGIC HISTORY Diagnosed with stage IV melanoma in May of 2016, BRAF mutated. She progressed on ipilimumab with clinical trial and then started dabrafenib and trametinib. She tolerated this well for quite some time, but then unfortunately progressed. We are now utilizing nivolumab plus TVEC, as she has subcutaneous localized metastatic disease. Her treatment has been complicated by brain metastasis as well and she has received stereotactic radiosurgery by Dr. Denis and Dr. Robledo in [place] as well. 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 Never smoker. Strong shashank, in the [employer]. MEDICATIONS 1. Compazine as needed. 2. Ibuprofen as needed. She is no longer taking dabrafenib or trametinib. REVIEW OF SYSTEMS CONSTITUTIONAL: No fevers, chills, weight change. HEENT: No headache or vision changes. CARDIOVASCULAR: No chest pain, dyspnea on exertion or edema. RESPIRATORY: No shortness of breath, wheeze, cough. GASTROINTESTINAL: No nausea, vomiting, diarrhea or constipation. GENITOURINARY: No dysuria or hematuria. MUSCULOSKELETAL: Her lesions are improving with treatment. NEUROLOGIC: No focal deficits. ENDOCRINE: No heat or cold intolerance. PSYCHIATRIC: No anxiety or depression. The remainder of the 14-point review of systems is otherwise negative. PHYSICAL EXAMINATION: VITAL SIGNS: Blood pressure 123/75, pulse 75, respiratory rate 16, temperature 98.3 Fahrenheit, oxygen saturation 94% on room air. Weight 87.5 kg. Pain 0/10 , fatigue 1/10. GENERAL: In stable condition, resting comfortably in the chair. HEENT: Normocephalic, atraumatic. CARDIOVASCULAR: Regular rate and rhythm. BREASTS: Exam of the left shows significant improvement in the lesions, as well as improvement along the chest wall consistent with response to TVEC and nivolumab. ABDOMEN: Soft, nontender. LYMPHATIC: No appreciable adenopathy today. Remainder of physical exam otherwise unremarkable. IMPRESSION AND PLAN Mrs. Dill is a very pleasant 41-year-old female with stage IV BRAF mutated malignant melanoma. Currently she is on nivolumab and TVEC and tolerated this well with excellent response. We hope to utilize the TVEC as long as it is warranted, and then continue the nivolumab indefinitely. We discussed how we do not have many options besides this, but are very encouraged with her response to date. Discussed symptom management as well. I answered all of her questions. Billing: Return visit level 4. Total time 30 minutes, counseling time 20. MTDD
[2017-09-21 14:21] VITALS: BP 136/83
[2017-09-21] MEDS: LIDOCAINE/SOD BICARB 8.4% SYR ID PRN (14:33)
[2017-09-21] MEDS: NS(*) 0.9% 100 ML BAG 100 ML IVPB PRN ×2 (14:34→16:09)
--- NOTE | 2017-09-21 16:38 | ONC Progress Note - NP.Halsey ---
Patient History Date of Service Sep 21, 2017 Reason For Visit/HPI Patient is seen in the clinic today with Opdivo and T VEC cycle 3 stage IV metastatic melanoma. Patient continues to report that she has minimal to no side effects other than development of increased fatigue and generalized body aches after completion of T-VEC. She reports that the masses in the breast tissue and left axilla has significantly decreased in size and she has only minimal tenderness. Patient completed this SBRT to the brain approximately 4 weeks ago. She reports today that she is having significant headaches over several days followed by nausea and vomiting lightheadedness and dizziness. She has been taken Tylenol and ibuprofen, Excedrin and headache medicine with minimal to no relief she has had emesis after taking them. She has Zofran and Compazine which she has been taking with some relief. He has tenderness in the left ear and a full sensation. She denies any fever or chills, shortness of breath diarrhea or constipation. She is scheduled for an MRI on October 05. Problem List (1) Melanoma (2) Nausea & vomiting (3) Effect of chemotherapy (4) Metastasis to brain Oncology History Ms. Dill is a young female of [place] ancestry who grew up in [place] and currently resides in [place], [place]. She does not have a history of lots of sun exposure throughout her life. However, she does recall having suffered a few sunburns. She also has a history of many moles in view of which she has been protecting herself from the sun. In any case, she noticed change in a pigmented lesion located on her left lower back which became raised and bled on, a least, one occasion. She went in to her driver examiner for evaluation and a biopsy was performed which was interpreted as a superficial spreading melanoma with a nodular component 4.4 mm thick, with ulceration. The margins were involved by both invasive melanoma and melanoma in situ. The deep margin was negative. There were 21 mitosis per square mm. There were no microsatellites , lymphovascular invasion was indeterminate. There was no perineural invasion or regression. A second biopsy was performed from her left lateral back and that was interpreted as a melanoma in situ arising in a pre-existing nevus. Four other lesions were excised, two of which revealed moderate cytologic atypia and one has features of a congenital nevus.Since last visit she developed lymphadenopathy confirmed to be melanoma in view of which she had WLE and LNDby Dr Marrufo 11/28/2015 which showed: A) Lymph nodes, left axilla, lymph node dissection: - Two out of twenty one lymph nodes, positive for metastatic melanoma (2/21)- Largest tumor focus: 8mm- B) Skin, left lower back, excision: - Residual invasive melanoma in association with melanoma in situ and prior biopsy site changes- Microsatellite nodule identified- No evidence of lymphovascular or perineural invasion- Margins of excision are free of tumor- She is a Stage IIIC January 2016 - S1404 clinical trial - standard ipi arm adjuvant treatment; starting date is 02/13/16 Skipped week 7 due to colitis and received prednisone April 30, 2016 - Ready to resume May 2016 - Progressive disease on ipi adjuvant trial. Transition to Dabrafenib and Tremetinib on trial. Dose adjustments required for dabrafenib and continued steroid to suppress fever. September 2016 - Imaging shows stable disease. Indeterminate subcentimeter nodule will be followed. November and March 2017 - PET/CT shows CR, no evidence of disease. May 2017 - CT imaging still shows CR, no evidence of disease June 2017 -skin relapse, biopsy-proven. Clinical trial stopped on 06/10/17-Started 07-16-17 Nivolumab q 2 weeks July metastatic melanoma involving the brain. MRI revealed 8.1 x 7.6 x 6.4mm area within the lateral anterior right temporal lobe. Patient completed stereotactic radiotherapy to treat for lesions in 1 fraction totaling 20Gy. 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 working due to side effects and the need to keep the children in the daycare safe from her exposure Alcohol History She denies abuse Smoking History: No Smoking Status: Never Smoker Exposure to Second Hand Smoke?: No Medications and Allergies Active Scripts Dexamethasone (DEXAMETHASONE) 2 Mg Tablet, 4 MG PO DAILY for 3 Days, #9 TAB Take 4mg daily x 3 days then 2mg daily x 3 days then DC Prov:[facility], ONC 09/21/17 Reported Medications Prochlorperazine Maleate (Compazine) 10 Mg Tablet, PO QDAY 06/28/16 Ibuprofen (Motrin) 800 Mg Tab, 800 MG PO Q8H, #30 0 Refills TAKE NEEDED FOR PAIN 11/15/09 Allergies: Coded Allergies: latex (Verified Allergy, Mild, IRRITATES SKIN, 06/28/16) Review of System/Physical Exam Review of Systems All Systems Reviewed/Normal: Yes, Except as Noted Constitutional: Positive for Appetite/Weight Change (decreased appetite with nausea and vomiting) HEENT: Hearing Problems (left ear hearing changes and discomfort, fullness causing difficulty with hearing), Nasal Discharge (clear nasal discharge but sinus pressure possibly causing the headache) Gastrointestinal: Nausea, Vomitting Hematologic: Positive for Fatigue, Positive for Weakness Musculoskeletal: Positive for Other (discomfort in the left breast tissue at injection sites is improving) Psychiatric: Anxiety Physical Exam Vital Signs Temperature: 98.6 Pulse: 107 BP Systolic: 136 BP Diastolic: 83 Respiratory Rate: 16 O2 SAT: 95 O2 Delivery: Height (inches) 64.00 Weight lb: 185 Weight oz: Weight Kg (Delmer): [id number] Pain: 2 ECOG Score: 2 (She is unable to drive and she is unstable) General: Not Stable, Well Developed, Well Nourished, Not In Acute Distress, Other (patient is alert and oriented 3 able to verbalize with minimal difficulty) HEENT: Other (right tympanic membrane is unremarkable, left tympanic membrane is full and bulging without signs of erythema or infection) Neck: Supple Lungs: Clear to Auscultation Heart: Regular Rate, Regular Rhythm, No Gallops, No Murmurs Abdomen: Soft and Nontender, No Hepatosplenomegaly, No Masses, Other (bowel sounds are active) Extremities: Other (left breast was not examined today, patient was receiving injections post visit) Lymphadenopathy: No Cervical, No Subclavicular Psychiatric: Mood appears normal, Affect appears normal, Other (patient does not feel well.) Skin: No Bruising, No Purpura, Other Diagnostic Studies Diagnostic Studies Laboratory Laboratory Tests 08/25/17 08:25 09/21/17 14:30 Laboratory Tests 08/25/17 00:00: Magnesium Level 1.6, Thyroid Stimulating Hormone (TSH) 2.55, Free Thyroxine 1.02 , Free Triiodothyronine 2.8 08/25/17 08:25: White Blood Count 7.0, Red Blood Count 4.68, Hemoglobin 14.7, Hematocrit 42.4, Mean Corpuscular Volume 90.5, Mean Corpuscular Hemoglobin 31.4, Mean Corpuscular Hemoglobin Concent 34.7, Red Cell Distribution Width 12.6, Platelet Count 286, Mean Platelet Volume 8.1, Neutrophils (%) (Auto) 61.7, Lymphocytes (% ) (Auto) 25.5, Monocytes (%) (Auto) 7.7, Eosinophils (%) (Auto) 4.0, Basophils ( %) (Auto) 1.1, Nucleated RBC Relative Count (auto) 0.0, Neutrophils # (Auto) 4.3 , Lymphocytes # (Auto) 1.8, Monocytes # (Auto) 0.5, Eosinophils # (Auto) 0.3, Basophils # (Auto) 0.1, Nucleated RBC Absolute Count (auto) 0.00 09/21/17 14:30: Sodium Level 136, Potassium Level 4.1, Chloride Level 104, Carbon Dioxide Level 21, Blood Urea Nitrogen 8, Creatinine 0.70, Glomerular Filtration Rate Calc > 60.0, Random Glucose 111, Calcium Level 10.9, Total Bilirubin 0.7, Aspartate Amino Transf (AST/SGOT) 88, Alanine Aminotransferase (ALT/SGPT) 198, Alkaline Phosphatase 150, Total Protein 7.5, Albumin 4.2 Assessment and Plan Assessment & Plan Patient is a 41-year-old female with recent history of metastatic melanoma involving the brain and lymph nodes in the left axilla and left lower back. Pathologic stage from 05/12/2016: Stage IV. BRAF mutated. Patient recently completed stereotactic radiotherapy to brain lesion 1 dose at 20 Gy with a good response. She then developed to 2 new areas and completed stereotactic radiotherapy to those brain lesions actually 4 weeks ago. She has had low-grade headaches off and on since that treatment and more recent has had significant headaches, nausea and vomiting, decreased appetite, dizziness and difficulty with ambulation. Her left ear drum is bulging without signs or symptoms of infection. She has decreased hearing in the left ear. She was scheduled for an MRI October 05 however I will have her call and make an appointment to move that MRI up this week. He very well could just have edema status post her last radiation treatment. I will give her 10 mg of Decadron IV followed by 4 mg by mouth daily 3 days and then 2 mg daily 3 days to see if this helps with her headache, nausea and vomiting. I did discuss that this dose may not be enough or that after the MRI this dose may be changed depending on results. Patient verbalized understanding and will call if she feels that it is not helping or that changes have been made by her radiation oncologist. Patient started on Opdivo on 07/16/2017 without difficulty. Patient received Opdivo today.. She started with TVEC injections on 08/04/2017 and completed cycle 4 today. He is having a good response with decreased size of each lesion in the left chest wall and breast tissue. Patient experiences generalized body aches and fatigue posttreatment. She has found that Claritin decreases the histamine response and helps with side effects. She is encouraged to use Tylenol or ibuprofen although she does not like to use them. Elevated liver enzymes: Patient is trying to avoid Tylenol. We will continue to monitor and if these continue we may need to adjust the dose of Opdivo or hold treatments until resolution or improvement. Patient follow Dr. Diaz. Patient to follow with Dr. Alfaro radiation oncology with MRI as soon as possible. I personally spent a total of 30 minutes. Of that 30 minutes was counseling/ coordination of patient's care. See my note above for details. Copies to: ROSALBA ALCAZAR MD; TRACY MARINO MD, [facility] REPRESENTATIVE-BC, ONC Sep 21, 2017 16:38
[2017-10-04 12:37] VITALS: BP 116/76
[2017-10-04] MEDS: LIDOCAINE/SOD BICARB 8.4% SYR ID PRN (14:15)
[2017-10-04 15:29] VITALS: BP 99/72
[2017-10-05] MEDS: LIDOCAINE/SOD BICARB 8.4% SYR ID PRN (13:49)
[2017-10-05 14:35] VITALS: BP 99/72
--- NOTE | 2017-10-07 04:39 | SCHUSTER ONCOLOGY NOTE ---
EVENT DATE: October 04, 2017 CHIEF COMPLAINT/REASON FOR VISIT The patient is a very pleasant 41-year-old female with metastatic melanoma currently on nivolumab and TVEC with diffuse brain metastasis and improving systemic metastasis that presents for followup. HISTORY OF PRESENT ILLNESS The patient returns. She has been on multiple clinical trials for her metastatic melanoma and is currently on off-label TVEC and nivolumab, as the clinical trial for this is currently on hold. She is responding brilliantly systemically, however, tragically she is having diffuse brain metastasis and has started whole brain radiation therapy. She will be finishing it this week. She is having considerable side effects with this, including nausea, headache. We are going to add Ativan to her regimen today. She continues to respond systemically, and I would like to continue this. We reviewed clinical trials around the country, as we do not have any to offer her here in [place] at this point. There are some available at [facility] in [place], but that would require travel. Of note, they are studying the combination of TVEC and nivolumab and its effect on brain metastasis. Difficult conversation today talking about goals of care. After discussion, she does want to press ahead with therapy, but understands that if this does not work, her life expectancy would be measured in weeks to a few months. ONCOLOGIC HISTORY Diagnosed with stage IV melanoma in May of 2016, BRAF mutated. She progressed on ipilimumab on clinical trial and then started dabrafenib and trametinib on clinical trial. She tolerated this well for quite some time, but then unfortunately progressed. We are now utilizing nivolumab plus TVEC, as she had subcutaneous localized metastatic disease, but then this was complicated by metastases, and she has received stereotactic radiosurgery in [place]. These are now too numerous, and we are progressing to whole brain radiation therapy while continuing the TVEC and nivolumab. 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 Strong shashank, in the [employer]. present again today. REVIEW OF SYSTEMS CONSTITUTIONAL: No fevers, chills, significant weight change. HEENT: No headache or vision changes. CARDIOVASCULAR: No chest pain, dyspnea on exertion or edema. RESPIRATORY: No shortness of breath, wheeze, cough. GI: Positive nausea and vomiting regularly. : No dysuria or hematuria. MUSCULOSKELETAL: Positive significant headaches, weakness. NEUROLOGIC: She does have neurologic deficits including poor hearing and other issues related to her disease and radiation therapy. ENDOCRINE: No heat or cold intolerance. PSYCHIATRIC: No anxiety or depression. She remains in remarkably good spirits , although appropriately upset about her diagnosis. Leaning on her strong shashank in [place]. The remainder of the 14-point review of systems is otherwise negative. PHYSICAL EXAMINATION: VITAL SIGNS: Blood pressure 116/76, pulse 89, respiratory rate 16, temperature 99.4 Fahrenheit, oxygen saturation 94% on room air. Pain 3/10, fatigue 5/10. GENERAL: Stable condition, resting comfortably in the chair. HEENT: Normocephalic, atraumatic. SKIN: The lesions on the skin have improved. ABDOMEN: Soft, nontender. LYMPHATIC: No appreciable adenopathy. PSYCHIATRIC: Normal mood and affect. ECOG performance status of 3 today. Remainder of physical exam otherwise unremarkable. IMPRESSION AND PLAN The patient is a pleasant 41-year-old female with stage IV BRAF mutated malignant melanoma. Currently on nivolumab, TVEC and whole brain radiation therapy. Unfortunately our big issue is her uncontrolled brain disease. We hope that the whole brain radiation therapy will be helpful. If it is not effective, though, I expect her life expectancy to be in weeks to a few months. If it is helpful, it will likely be measured in months to a year or two. We had a conversation about this, as we have in the past, and they are very aware of this and would like to press ahead with therapy. Advised that they could meet with Gerda, our social science professor, to discuss in more detail. This is particularly challenging, as they have young children. I answered all of her many questions today. Will see her in the next month. Fluids daily. Increase nausea regimen to include lorazepam. I answered all of her questions. Billing: Return visit level 5.. Total time 45 minutes, counseling time 30. MTDD
[2017-10-09] MEDS: NS(*) 0.9% 1000 ML BAG 1,000 ML IV PRN (10:02)
[2017-10-09] MEDS: LIDOCAINE/SOD BICARB 8.4% SYR ID PRN (10:16)
[2017-10-09] MEDS: LORazepam 2 MG/ML VIAL IVP PRN (10:21)
[2017-10-09 10:29] VITALS: BP 130/89
[2017-10-10 10:27] VITALS: BP 127/83
[2017-10-10] MEDS: NS(*) 0.9% 1000 ML BAG 1,000 ML IV PRN (10:31)
[2017-10-10] MEDS: LORazepam 2 MG/ML VIAL IVP PRN (10:42)
[2017-10-14] MEDS: LORazepam 2 MG/ML VIAL IVP PRN (15:38)
[2017-10-15] MEDS: LORazepam 2 MG/ML VIAL IVP PRN (15:29)
[2017-10-18 15:54] VITALS: BP 125/72
[2017-10-19] MEDS: NS(*) 0.9% 1000 ML BAG 1,000 ML IV PRN (13:17)
[2017-10-19 13:18] VITALS: BP 117/81
[2017-10-19] MEDS: LORazepam 2 MG/ML VIAL IVP PRN (13:25)
[2017-10-19 17:07] VITALS: BP 132/89
--- NOTE | 2017-10-20 04:40 | SCHUSTER ONCOLOGY NOTE ---
EVENT DATE: October 18, 2017 CHIEF COMPLAINT/REASON FOR VISIT The patient is a very pleasant 41-year-old female with metastatic melanoma currently on nivolumab and TVEC with diffuse brain metastases, having finished whole brain radiation therapy, here for followup. HISTORY OF PRESENT ILLNESS The patient returns. She has been on multiple clinical trials for her metastatic melanoma, and is currently on off-label TVEC and nivolumab, as the clinical trial for this is currently in development and should be open soon. She is responding systemically, however, she is struggling with diffuse brain metastases, and finished whole brain radiation therapy. She had numerous side effects from this including hearing loss, profound nausea, fatigue. Now that we have completed the whole brain radiation therapy and she received steroids over the weekend, she is feeling better. We would like to minimize the steroid use due to the concern that it affects the TVEC and nivolumab, and so we plan to give fluids alone without steroids today. If her nausea relapses, though, we will need to reconsider this. At our last visit, we had an extensive conversation about goals of care, and she would like to continue with therapy. They have an excellent understanding about her prognosis and potential for need for hospice in the future. ONCOLOGIC HISTORY Diagnosed with stage IV melanoma in May of 2016, BRAF mutated. She progressed on ipilimumab on clinical trial and then started dabrafenib and trametinib on clinical trial. She tolerated this well for quite some time, but then unfortunately progressed. We are now utilizing nivolumab plus TVEC, as she had subcutaneous localized metastatic disease, but then this was complicated by metastases, and she has received stereotactic radiosurgery in [place]. These are now too numerous, and we are progressing to whole brain radiation therapy while continuing the TVEC and nivolumab. 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 Strong shashank, in the [employer]. present again today. REVIEW OF SYSTEMS CONSTITUTIONAL: No fevers, chills, significant weight change. HEENT: Positive presbycusis. No significant headache. No vision changes at this time. CARDIOVASCULAR: No chest pain, dyspnea on exertion or edema. RESPIRATORY: No shortness of breath, wheeze, cough. GI: No nausea, vomiting, diarrhea or constipation. : No dysuria or hematuria. MUSCULOSKELETAL: No weakness or joint pain. Positive fatigue. PSYCHIATRIC: No anxiety or depression. She is in good spirits. The remainder of the 14-point review of systems is otherwise negative. PHYSICAL EXAMINATION: VITAL SIGNS: Blood pressure 125/72, pulse 80, respiratory rate 16, temperature 97.7 Fahrenheit, oxygen saturation 92% on room air. Weight 79.4 kg. Pain 0/10 , fatigue 0/10. GENERAL: Stable condition, resting comfortably in the wheelchair. ECOG performance status of 2. HEENT: Positive alopecia. Positive presbycusis, particularly in the right ear. CARDIOVASCULAR: Regular rate and rhythm. LUNGS: Clear. ABDOMEN: Soft. EXTREMITIES: No clubbing, cyanosis or edema. SKIN: Her lesions on the chest wall and breast have improved. Continue the TVEC and Opdivo. She is scheduled for treatment tomorrow. Remainder of physical exam unremarkable. IMPRESSION AND PLAN The patient is a pleasant 41-year-old female with stage IV malignant melanoma. Currently on nivolumab, TVEC and whole brain radiation therapy. She finished the whole brain radiation therapy and is recovering. We discussed management of her nausea. I am hopeful that the whole brain radiation therapy will help control the brain metastases, and she will have significant amount of time with quality of life. If this is not effective, though, I expect her life expectancy to be measured in weeks to a few months. We will continue the systemic therapy with nivolumab and TVEC and hope that it affects the brain as well, as it is currently being studied at [facility] for patients with brain metastases. Fluids daily as needed for dehydration, lightheadedness, nausea. We will need to utilize dexamethasone for nausea if she relapses. I answered all of her questions today. Billing: Return visit level 4. Total time 30 minutes, counseling time 20. High risk, high complexity. MTDD
[2017-10-20] MEDS: LORazepam 2 MG/ML VIAL IVP PRN (10:32)
[2017-10-20 10:36] VITALS: BP 123/76
[2017-10-21 11:17] VITALS: BP 112/75
[2017-10-21] MEDS: NS(*) 0.9% 1000 ML BAG 1,000 ML IV PRN (13:16)
[2017-10-22 10:47] VITALS: BP 119/75
[2017-10-22] MEDS: LIDOCAINE/SOD BICARB 8.4% SYR ID PRN (13:46)
[2017-10-22] MEDS: NS(*) 0.9% 1000 ML BAG 1,000 ML IV PRN (13:47)
[2017-10-25] MEDS: NS(*) 0.9% 1000 ML BAG 1,000 ML IV PRN (12:17)
[2017-10-25 12:28] LABS: PLATELET COUNT, AUTOMATED 379 K/uL (150-450)
[~2017-10-26] VITALS: Ht 162.6 cm; Wt 79.4 kg
[~2017-10-26 10:00] MED LIST changes: +DEXAMETHASONE SOD PHOS 10MG/ML IVP ONE; +DEXAMETHASONE SOD PHOS 10MG/ML IVP PRN; +DEXTROSE 5%(*) 100 ML BAG 100 ML IVPB PRN; +KCL/NS* 20 MEQ/1000 ML PREMIX 1,000 ML IV ONE; +LORazepam 2 MG/ML VIAL IVP ONE; +LORazepam 2 MG/ML VIAL IVP PRN; +NIVOLUMAB 100 MG SDV 200 MG, NIVOLUMAB 40 MG/4 ML SDV 40 MG in NS(*) 0.9% 100 ML BAG 10... IV ONE; +NS(*) 0.9% 1000 ML BAG 1,000 ML IV ONE; +NS(*) 0.9% 500 ML BAG 500 ML IV ONE; +ZOLEDRONIC ACID 4 MG/5 ML VIAL 4 MG in NS(*) 0.9% 100 ML BAG 100 ML IVPB ONE; +[UNRECOGNIZED DRUG - OTHER] IJ ONE
[2017-10-26 10:22] VITALS: BP 118/80
[2017-10-26] MEDS ORDERED: DEX4 PO (10:30)
[2017-10-26] MEDS ORDERED: DEXAMETHASONE SOD PHOS 10MG/ML IVP ONE (10:40)
[2017-10-26] MEDS: NS(*) 0.9% 1000 ML BAG 1,000 ML IV PRN (10:51)
[2017-10-26 12:11] VITALS: BP 128/85
== END 2017-10-27 ==
LOC: SPU 10:00
PROVIDERS: ATTEND Internal Medicine
DX: Z51.11 Encounter for antineoplastic chemotherapy (principal); C43.9 Malignant melanoma of skin, unspecified; C79.31 Secondary malignant neoplasm of brain; C77.3 Secondary and unspecified malignant neoplasm of axilla and upper limb lymph nodes; R11.2 Nausea with vomiting, unspecified; R50.9 Fever, unspecified; Z79.899 Other long term (current) drug therapy; R53.83 Other fatigue; R51 Headache; R42 Dizziness and giddiness; R53.1 Weakness
CPT/HCPCS: 36415; 83735; 84439; 84443; 84481; 85025; 85027; 96360; 96361; 96365; 96367; 96374; 96375; 96409; 96413; 96415; 99212; J1100; J2060; J3489; J7030; J7050; J9299; J9325; 82040; 82247; 82310; 82374; 82435; 82565; 82947; 84075; 84132; 84155; 84295; 84450; 84460; 84520; J3480

== ENCOUNTER → 2017-11-04 | Outpatient (CLI) | payer BC, OTHER ==
[~2017-11-04] MED LIST changes: +DEX4 PO; -DEXAMETHASONE SOD PHOS 10MG/ML IVP ONE; -DEXAMETHASONE SOD PHOS 10MG/ML IVP PRN; -DEXTROSE 5%(*) 100 ML BAG 100 ML IVPB PRN; -KCL/NS* 20 MEQ/1000 ML PREMIX 1,000 ML IV ONE; -LORazepam 2 MG/ML VIAL IVP ONE; -LORazepam 2 MG/ML VIAL IVP PRN; -NIVOLUMAB 100 MG SDV 200 MG, NIVOLUMAB 40 MG/4 ML SDV 40 MG in NS(*) 0.9% 100 ML BAG 10... IV ONE; -NS(*) 0.9% 1000 ML BAG 1,000 ML IV ONE; -NS(*) 0.9% 500 ML BAG 500 ML IV ONE; -ZOLEDRONIC ACID 4 MG/5 ML VIAL 4 MG in NS(*) 0.9% 100 ML BAG 100 ML IVPB ONE; -[UNRECOGNIZED DRUG - OTHER] IJ ONE
== END ==
LOC: SPU 15:01
PROVIDERS: ATTEND Internal Medicine
DX: Z51.11 Encounter for antineoplastic chemotherapy (principal); C43.9 Malignant melanoma of skin, unspecified; C79.31 Secondary malignant neoplasm of brain
CPT/HCPCS: 96406; J9325

== ENCOUNTER 2017-11-18 12:55 | Outpatient (RCR) | payer BC, OTHER ==
[~2017-11-18 12:55] MED LIST changes: -[UNRECOGNIZED DRUG - OTHER] IJ ONE
--- NOTE | 2017-11-18 14:26 | PT INITIAL EVALUATION ---
MEDICAL DIAGNOSIS: Metastatic Melanoma TREATMENT DIAGNOSIS: Metastatic Melanoma, Generalized Weakness DATE OF ONSET: 11/18/17 SUBJECTIVE: Keyona is a pleasant 42 year old female presenting to oncology rehabilitation following recent onset of weakness secondary to brain metastasis. Keyona was diagnosed with melanoma >2 years prior on her L thoracic region with spread of disease to the L axillary lymph nodes. Pt underwent lymph node resection of 21 axillary nodes in November 2015 as well as initiated oncological intervention. Recently pt developed further metastasis to the brain and is currently receiving chemotherapy intervention every 2 weeks to manage spread of disease. Pt's mother is present for rehabilitation evaluation. Pt and mother report that approximately 1 week ago pt started developing L sided weakness as well as numbness which has progressively got worse. Pt now also reports R side numbness occasionally. Pt was previously active with walking daily but has been unable to do so secondary to the onset of weakness. Additionally, with prolonged sitting pt reports development of muscle tightness and soreness as well as soreness on her bottom from sitting. REHAB PROBLEM LIST: Increased Pain Decreased ROM Decreased Strength Impaired Transfers Decreased Endurance Decreased Function Decreased ADL's Decreased Mobility Decreased Gait PREVIOUS MEDICAL HISTORY: See EMR OBJECTIVE: Posture: Pt has rounded shoulder posture with increased thoracic kyphosis. ROM: Full B LE PROM but pt is unable to achieve full AROM with hip flexion and knee ext. Strength: LE MMT (L,R): Hip: Flexion: 3-/5, 3+/5, Ext: 4/5, 4/5, Abd: 4-/5, 4+/5 , Add: 3+/5, 4+/5. Knee: Flexion: 3+/5, 4-/5, Ext: 3-/5, 4/5. Ankle: DF: 4/5, 4/5, PF: 4-/5, 4-/5. Sensation: Numbness sensation present throughout L>R LE and UE Mobility: ECOG Performance Status: Grade 3 ASSESSMENT: Keyona shows signs and symptoms with generalized weakness consistent with diagnosis. Physical therapy is indicated for this patient to decrease pain and maintain function with disease progression, as well as to decrease caregiver burden. Short Term Goals In 2 weeks pt and family will be able to demonstrate good stand pivot and squat pivot transfers with good posture mechanics for decreased risk of injury and improved function with ADL's. In 2 weeks pt and family will be able to demonstrate good walking mechanics with use of gait belt for improved functional mobility and safety with ADL's. In 2 MO pt and family will be compliant with PROM and AROM, UE and LE, HEP to decrease pain and maintain functional use of musculature for performance of self care and ADL's. Patient's Goals Improve functional transfers, strength, and mobility. Decrease caregiver burden. PLAN: Patient to be seen for Manual Therapy/STM/MET Strengthening/condition Ice/Heat Range of Motion Spinal Stabilization Ultrasound Stretching Iontophoresis Neuromuscular Re-ed Closed Chain Program Electrical Stim Posture/Body mechanics Gait Trg/Balance Trg Biofeedback Home Exercise Program Mech./Manual Traction Therapeutic Activities Pelvic Floor 1x/2weeks for 4 Months If you have any questions, comments, or concerns about this report or plan, please contact me at . Thank you, Akiko Seaman, PT, DPT, CLT MTDD
== END 2017-11-18 18:00 | disposition home or self-care (01) ==
LOC: PT 12:55
PROVIDERS: ATTEND Internal Medicine Hematology
DX: M62.81 Muscle weakness (generalized) (principal); C79.31 Secondary malignant neoplasm of brain; C43.59 Malignant melanoma of other part of trunk; R20.2 Paresthesia of skin; C77.3 Secondary and unspecified malignant neoplasm of axilla and upper limb lymph nodes
CPT/HCPCS: 97162

== ENCOUNTER → 2017-11-18 | Outpatient (CLI) | payer BC, OTHER | LOC: SPU 11:32 | PROVIDERS: ATTEND Internal Medicine | DX: C43.9 Malignant melanoma of skin, unspecified (principal); C79.9 Secondary malignant neoplasm of unspecified site ==

== ENCOUNTER 2017-11-29 09:30 | Outpatient (RCR) | payer BC ==
[2017-10-28 11:09] VITALS: BP 130/87
[2017-10-28 12:11] VITALS: BP 121/78
[2017-11-01 09:39] VITALS: BP 113/79
[2017-11-01] MEDS: LIDOCAINE/SOD BICARB 8.4% SYR ID PRN (10:42)
--- NOTE | 2017-11-02 17:16 | ONCOLOGY FOLLOW UP NOTE ---
EVENT DATE: November 01, 2017 CHIEF COMPLAINT/REASON FOR VISIT Mrs. Dill is a very pleasant 41-year-old female with metastatic melanoma currently on nivolumab, TVEC, with diffuse brain metastasis, having finished whole brain radiation therapy, here for followup. HISTORY OF PRESENT ILLNESS Keyona returns with her mother today. She has been on multiple clinical trials for her metastatic melanoma and is currently on off-label TVEC and nivolumab, as the clinical trial for this is in development and was not available at the time she needed it. She is responding very well systemically, with improvement on the chest wall. She did feel a lymph node temporarily in the left axilla, but it is no longer palpable. Her biggest issue is diffuse brain metastasis and recovery from whole-brain radiation therapy. No seizure activity recently fortunately. She has numerous side effects including significant hearing loss with muffled sounds, profound nausea requiring low- dose dexamethasone, and fatigue. She is slowly recovering and she is now taking the steroid dexamethasone 4 mg twice a day. We will try to cut that down to once a day next week, as we would like to minimize the steroid use due to the concern that it affects the TVEC and nivolumab. IV fluids planned for today. We have previously discussed her goals of care and she would like to continue to pursue treatment. She understands the poor prognosis, but her goal is to reach her son's graduation at the end of November. I do think that is very possible. I am of course hopeful for a cure, but they understand that most likely this is palliative treatment and that she will succumb to her disease someday. 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 present again today. REVIEW OF SYSTEMS CONSTITUTIONAL: No fevers, chills, significant weight change. HEENT: Positive presbycusis. No significant headache. No vision changes at this time. CARDIOVASCULAR: No chest pain, dyspnea on exertion or edema. RESPIRATORY: No shortness of breath, wheeze, cough. GI: No nausea, vomiting, diarrhea or constipation. : No dysuria or hematuria. MUSCULOSKELETAL: No weakness or joint pain. Positive fatigue. PSYCHIATRIC: No anxiety or depression. She is in good spirits. The remainder of the 14-point review of systems is otherwise negative. PHYSICAL EXAMINATION: VITAL SIGNS: Blood pressure 113/79, pulse 74, respiratory rate 16, temperature 97.5 Fahrenheit, oxygen saturation 96% on room air. Pain 0/10, fatigue 2/10. GENERAL: Stable condition, resting comfortably in the wheelchair. HEENT: Positive alopecia. Positive presbycusis, using an amplifier as the problem is muffling as opposed to high-pitch loss. CARDIOVASCULAR: Regular rate and rhythm. LUNGS: Clear. ABDOMEN: Soft, nontender. EXTREMITIES: No clubbing, cyanosis or edema. SKIN: The lesions on her chest wall and breast have improved. LYMPHATIC: No appreciable cervical, supraclavicular or axillary adenopathy. Remainder of physical exam unremarkable. IMPRESSION AND PLAN Mrs. Dill is a very pleasant 41-year-old female with the followin. Stage IV malignant melanoma. Currently on nivolumab, TVEC and whole brain radiation therapy. She is recovering from the whole brain radiation therapy, but is still requiring some dexamethasone for the nausea. We will give IV fluids today and hopefully we can transition this to weekly. I am hopeful that the whole brain radiation therapy will control the brain metastasis and add a significant amount of time with quality of life. However, if this is ineffective , I expect her life expectancy to be measured in weeks to a few months. She is aware of this. We will continue current therapy, see her approximately monthly. I answered all of their questions today. Billing: Return visit level 4. Total time 30 minutes, counseling time 20. High risk, high complexity. MTDD
[2017-11-04 12:50] VITALS: BP 113/87
[2017-11-04] MEDS: LIDOCAINE/SOD BICARB 8.4% SYR ID PRN (13:06)
[2017-11-04] MEDS: NS(*) 0.9% 100 ML BAG 100 ML IVPB PRN (13:08)
[2017-11-04 16:58] VITALS: BP 123/80
[2017-11-15 12:03] VITALS: BP 125/80
[2017-11-17 12:02] VITALS: BP 115/90
[2017-11-17] MEDS: LIDOCAINE/SOD BICARB 8.4% SYR ID PRN (12:17)
--- NOTE | 2017-11-17 15:00 | RADIOLOGY IMAGING REPORT ---
FACILITY: [facility] - [place] PATIENT NAME: Keyona Dill : 1975 MR: [id number] V: [id number] EXAM DATE: ORDERING PHYSICIAN: TRACY MARINO TECHNOLOGIST: Location: [facility] - [place] Patient: Keyona Dill : 1975 Visit/Account:[id number] Date of Sevice: 11/17/2017 Examination: MR brain without and with contrast History: Melanoma Comparison November 03, 2017 Technique: Multiplane MR imaging was performed through the brain without and with contrast. 15 cc IV multihance was administered. Findings: Diffusion: None Ventricles: Normal Midline shift: None Extraxial fluid: None Midline craniocervical structures: Normal Parenchyma: Vasogenic edema in the right temporal lobe has decreased. Vasogenic edema in the left tem poral lobe has slightly decreased. Enhancement: A few punctate enhancing nodules in the upper cerebellum have not definitively changed, axial postcon trast image 11. Unchanged anterior right temporal lobe 6 mm nodule, axial postcontrast image 8. Right anterolateral temporal 1.6 x 1.3 cm transverse dimension by 1.5 cm craniocaudad nodule is uncha nged. Unchanged subcentimeter medial right frontal lobe nodule, axial postcontrast image 15. Left medial temporal lobe/hippocampal 1.6 x 1.6 cm transverse dimension nodule has slightly increased in size. This measures 1.6 cm craniocaudad, previously 1.5 cm. Anterior left temporal region subcentimeter nodule is unchanged, coronal postcontrast image 10. Unchanged left occipital 6 mm nodule, coronal image 26. Left frontal, left parietal and left temporal region leptomeningeal enhancement is unchanged and visi ble on coronal reformations. Vascular flow voids: Normal Orbits and paranasal sinuses: Normal Impression: 1. No new metastatic disease. 2. Left medial temporal lobe 1.6 x 1.6 x 1.6 cm nodule has slightly increased in size. The remaining metastases are unchanged in size. 3. Persistent but decreased vasogenic edema in the temporal lobes. 4. Unchanged leptomeningeal enhancement in the left parietal, frontal and temporal regions. Report Dictated By: Joaquim Santo MD at 11/17/2017 2:41 PM Report E-Signed By: Joaquim Santo MD at 11/17/2017 2:56 PM [id number]
[2017-11-18] MEDS: NS(*) 0.9% 100 ML BAG 100 ML IVPB PRN (15:31)
[2017-11-18] MEDS: LIDOCAINE/SOD BICARB 8.4% SYR ID PRN (15:31)
--- NOTE | 2017-11-20 15:58 | ONCOLOGY FOLLOW UP NOTE ---
EVENT DATE: November 15, 2017 CHIEF COMPLAINT/REASON FOR VISIT Ms. Dill is a pleasant 42-year-old female with metastatic melanoma with brain metastasis, here for followup, on nivolumab and TVEC palliative chemotherapy. HISTORY OF PRESENT ILLNESS Ms. Dill returns. Please see her extensive melanoma history in my previous notes. She recently completed whole-brain radiation therapy and is continuing to recover from this. She had an MRI after the visit on the , which fortunately showed no significant change. One lesion seemed slightly smaller in millimeters, but this may be radiation change. I am hopeful that her systemic therapy with the nivolumab and TVEC is controlling her disease and the use of whole-brain radiation therapy will provide benefit. One of her main goals is to get to the graduation of her son at the end of November. She understands that I am optimistic and hopeful that she will live for months, but I don't believe it is more than many months. I am hopeful that we can control her disease with the treatment we have already done, manage her side effects and continue the palliative immunotherapy. We did discuss again her goals of care and she would like to continue the immunotherapy as opposed to transition to full hospice at this time. They have decided that they would not like to travel any more. She has been part of a clinical trial and has upcoming imaging study in November, but would like to forego this. I believe this is reasonable considering that the patient is very frail. I do believe that she has control of her systemic disease, however , based on the exam findings on the skin. This is very encouraging, and I am hopeful that she is able to make it to the graduation of her son next month. ONCOLOGIC HISTORY Diagnosed with stage IV melanoma in May of 2016, BRAF mutated. She progressed on ipilimumab on clinical trial and then started dabrafenib and trametinib on clinical trial. She tolerated this well for quite some time, but then unfortunately progressed. We are now utilizing nivolumab plus TVEC, as she had subcutaneous localized metastatic disease, but then this was complicated by metastases, and she has received stereotactic radiosurgery in [place]. These are now too numerous, and we are progressing to whole brain radiation therapy while continuing the TVEC and nivolumab. 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 Strong shashank, in the [employer]. present again today. REVIEW OF SYSTEMS CONSTITUTIONAL: Positive fatigue. No fevers, chills. No significant loss of weight. HEENT: Positive hearing loss. She has high-pitched hearing loss as well as muffled sounds. No vision changes. CARDIOVASCULAR: No chest pain, dyspnea on exertion or edema. RESPIRATORY: No shortness of breath, wheeze, cough. GI: No nausea, vomiting currently. We do have that controlled with a nausea regimen. : No dysuria or hematuria or signs of infection. MUSCULOSKELETAL: Positive weakness and instability. NEUROLOGIC: Multiple neurologic symptoms including left-sided numbness which is new. I see nothing to correlate with that though, however, on the MRI. HEMATOLOGIC/LYMPHATIC: No bruising, bleeding issues. SKIN: No concerning rashes currently. She does have the melanoma on the left breast and chest wall that is being treated with the TVEC, and I believe responding. The remainder of the 14-point review of systems is otherwise negative. PHYSICAL EXAMINATION: VITAL SIGNS: Blood pressure 125/80, pulse 71, respiratory rate 16, temperature 98.5 Fahrenheit, oxygen saturation 94% on room air. Weight 78.6 kg. Pain 4/10 , fatigue 5/10. GENERAL: In stable condition, resting comfortably in the wheelchair. HEENT: Normocephalic, atraumatic. CARDIOVASCULAR: Deferred. Full physical exam deferred today to amount of time spent in counseling with the family today. I had an excellent meeting with them. IMPRESSION AND PLAN Ms. Dill is a pleasant 42-year-old female with the followin. Metastatic melanoma. 2. Brain metastasis. Ms. Dill would like to continue with palliative immunotherapy with Optivo and TVEC. This is extremely reasonable. We are trying to provide as many support services as we can for her as well. I am encouraged by the minimal change on her MRI and I am hopeful that the slight change we see with one lesion is simply radiation change. We currently have her nausea under decent control. I answered all of their many questions today. Billing: Return visit level 4. Total time 30 minutes, counseling time 20. MTDD
[~2017-11-29 09:30] MED LIST changes: +DEXTROSE 5%(*) 100 ML BAG 100 ML IVPB PRN; +GADOBENATE 529MG/1ML 15ML VIAL IVP ONE; +NIVOLUMAB 100 MG SDV 200 MG, NIVOLUMAB 40 MG/4 ML SDV 40 MG in NS(*) 0.9% 100 ML BAG 10... IV ONE; +NS(*) 0.9% 1000 ML BAG 1,000 ML IV PRN; +[UNRECOGNIZED DRUG - OTHER] IJ ONE
[2017-11-29 09:33] VITALS: BP 130/77
[2017-11-29] MEDS ORDERED: MORPHINE 10 MG/ML SYR IVP PRN (11:25)
[2017-11-29] MEDS ORDERED: DEXAMETHASONE SOD 4 MG/ML VIAL IVP ONE (11:25)
[2017-11-29] MEDS ORDERED: NS(*) 0.9% 500 ML BAG 500 ML IV PRN (11:25)
--- NOTE | 2017-11-30 16:39 | ONCOLOGY FOLLOW UP NOTE ---
EVENT DATE: November 29, 2017 CHIEF COMPLAINT/REASON FOR VISIT Ms. Dill is an extremely pleasant 42-year-old female with metastatic melanoma with brain metastasis here for followup. HISTORY OF PRESENT ILLNESS Ms. Dill returns. Please see her extensive melanoma history in my previous notes as well as the outline below. Unfortunately, Keyona has worsened recently. I do worry that she had an acute event, either a stroke or a bleed. She now has no use of her legs and limited use of her arms. Her hearing has worsened. Her fatigue has increased to a 9/10 and pain is a 7/10. Her and mother are having difficulty caring for her. She is essentially bedbound at this time. After visiting with them, I believe that management at home is no longer feasible. Despite the family ideally wanting to be at home, they agree that she needs additional nursing care that they cannot provide at home. We have an inpatient hospice unit in [facility] as well as the hospital. Given this recent acute event, I do believe she meets criteria for inpatient status, as I am concerned about hemorrhagic stroke. We discussed goals of care extensively, and her goals would be palliative in nature moving forward. We are going to discontinue future nivolumab and TVEC palliative chemotherapy. Her goal remains to be able to see her son's graduation at the end of November, but I have told them today that I am extremely concerned about this being possible. ONCOLOGY HISTORY Diagnosed with stage IV melanoma in May of 2016, BRAF mutated. She progressed on ipilimumab on clinical trial and then started dabrafenib and trametinib on clinical trial. She tolerated this well for quite some time, but then unfortunately progressed. We are now utilizing nivolumab plus TVEC, as she had subcutaneous localized metastatic disease, but then this was complicated by metastases, and she has received stereotactic radiosurgery in [place]. These are now too numerous, and we are progressing to whole brain radiation therapy while continuing the TVEC and nivolumab. 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 Strong shashank, in the [employer]. present again today. REVIEW OF SYSTEMS CONSTITUTIONAL: Positive fatigue, weight loss. No fevers, chills. HEENT: Profound presbycusis and hearing loss. No vision changes. CARDIOVASCULAR: No chest pain. RESPIRATORY: No shortness of breath, cough. GASTROINTESTINAL: No nausea, vomiting currently. GENITOURINARY: No signs of infection. MUSCULOSKELETAL: Profound weakness and instability, both left and right sides now. NEUROLOGIC: Multiple neurologic symptoms including acute changes this week, raising the concern for an acute event. HEMATOLOGIC/LYMPHATIC: No bruising or bleeding. SKIN: No concerning rash. The remainder of review of systems otherwise negative. PHYSICAL EXAMINATION: VITAL SIGNS: Blood pressure 130/77, pulse 106, respiratory rate 16, temperature 97.4, oxygen saturation 97% on room air. Pain 7/10, fatigue 9/10. GENERAL: Critically ill patient unable to be at home. ECOG performance status of 4. HEENT: Profound hearing loss. She is reading lips to understand what I am saying. She can no longer hear me. SKIN: Changes related to steroids, however, I do believe we need to increase the steroids given concern for inflammation in the brain causing some of her symptoms. It may help with the pain a well. Full physical exam deferred today to amount of time spent in counseling with the family and coordination with hospice. IMPRESSION AND PLAN Ms. Dill is a pleasant 42-year-old female with the followin. Metastatic melanoma. 2. Brain metastasis. 3. End-of-life care, plan to transition to hospice today. Discontinue palliative immunotherapy with Opdivo and TVEC. No further imaging. Increase the steroid to twice daily. Recommend transition to inpatient hospice today. Billing: Return visit level 4. Total time 30 minutes, counseling time 20. MTDD
== END 2017-12-11 14:20 | disposition home or self-care (01) ==
LOC: ONC 09:30
PROVIDERS: ATTEND Internal Medicine
DX: C43.9 Malignant melanoma of skin, unspecified (principal); C79.31 Secondary malignant neoplasm of brain; Z92.3 Personal history of irradiation; R11.0 Nausea; R53.83 Other fatigue
CPT/HCPCS: 70553; 83735; 84439; 84443; 84481; 85027; 96360; 96361; 96365; 96374; 96375; 99212; A9577; J1100; J2270; J7030; J7040; J7050; J9299; 82040; 82247; 82310; 82374; 82435; 82565; 82947; 84075; 84132; 84155; 84295; 84450; 84460; 84520

== ENCOUNTER 2017-11-29 13:40 | Inpatient (IN) | payer BC, OTHER ==
[~2017-11-29] VITALS: Ht 162.6 cm; Wt 75.3 kg
[2017-11-29 13:40] VITALS: BP 121/81
[~2017-11-29 13:40] MED LIST changes: -DEXTROSE 5%(*) 100 ML BAG 100 ML IVPB PRN; -GADOBENATE 529MG/1ML 15ML VIAL IVP ONE; -NIVOLUMAB 100 MG SDV 200 MG, NIVOLUMAB 40 MG/4 ML SDV 40 MG in NS(*) 0.9% 100 ML BAG 10... IV ONE; -NS(*) 0.9% 1000 ML BAG 1,000 ML IV PRN; -[UNRECOGNIZED DRUG - OTHER] IJ ONE
[2017-11-29] MEDS ORDERED: MORPHINE 1 MG/ML 30 ML PCA IV PRN (14:05)
[2017-11-29] MEDS ORDERED: PROMETHAZINE 25 MG/ML 1 ML AMP IVP PRN (14:05)
[2017-11-29] MEDS ORDERED: MAGNESIUM HYDROXIDE* 30ML UDCP PO PRN (14:05)
[2017-11-29] MEDS ORDERED: ACETAMINOPHEN 325 MG TAB PO PRN (14:05)
--- NOTE | 2017-11-29 14:28 | History & Physical ---
History of Present Illness Chief Complaint Pain/weakness History of Present Illness 42yo female with diffusely metastatic melanoma who has been receiving care through [facility]. She has noted increasing weakness and persistent decline in her ability to care for herself. Her metastatic disease has been progressive. She has now elected to pursue comfort measures/end-of-life care. She will be admitted to [facility] beta suite. History Problems: (1) Metastatic melanoma Status: Chronic Home Meds Active Scripts Lorazepam (ATIVAN) 0.5 Mg Tablet, 0.5-1 MG PO Q4H Y for NAUSEA, #30 TAB Prov:TRACY MARINO MD 10/04/17 Ondansetron (ZOFRAN ODT) 4 Mg Tab.rapdis, 4 MG PO Q6H Y for NAUSEA/VOMITING, # 20 TAB.JOY 0 Refills Prov:JULES ROSAS MD 10/02/17 Hydrocodone Bit/Acetaminophen (HYDROCODON-ACETAMINOPHEN 5-325) 1 Each Tablet, 1 EACH PO Q4H Y for PAIN, #12 TAB 0 Refills Prov:JULES ROSAS MD 10/02/17 Reported Medications Prochlorperazine Maleate (Compazine) 10 Mg Tablet, PO QDAY 06/28/16 Ibuprofen (Motrin) 800 Mg Tab, 800 MG PO Q8H, #30 0 Refills TAKE NEEDED FOR PAIN 11/15/09 Allergies: Coded Allergies: latex (Verified Allergy, Mild, IRRITATES SKIN, 10/02/17) Hx Smoking: No Smoking Status: Never Smoker Exposure to Second Hand Smoke?: No Review of Systems Neurological: Weakness ENT: Hearing Loss Gastrointestinal: Constipation Musculoskeletal: Impaired Mobility Exam General Appearance: Alert, Awake, Other (hard of hearing) Neuro: Other (generalized weakness) Cardiovascular: Regular Rate and Rhythm Respiratory: Clear to Auscultation GI: Other (soft/BS present) Extremities: Warm, Perfused, Edema (trace both lower extremities) Psych: Alert & Oriented X3 Assessment and Plan Problems: (1) Metastatic melanoma Status: Chronic Assessment & Plan: Will admit to [facility] beta suite for comfort measures/end-of -life care. She is DNR/DNI. Will place on IV morphine for pain control, IV Ativan for anxiety/agitation, IV Phenergan for nausea control. Will also start Senokot S PO BID for bowel regimen. Her mobility has significantly declined, so will place Bell cath as well. Will monitor her status closely and modify her treatment as needed. Venous Thromboembolism Antithrombotics Is Pt On Any Antithrombotics?: No Prophylaxis Tx Contraindicated Pharmacological Contraindicati: Comfort Measure Mechanical Contraindications: Comfort Measures Only LIU MARIO MD Nov 29, 2017 14:28
[2017-11-29] MEDS: DOCUSATE SOD/SENNA 1 EACH TAB PO SCH (21:46)
[2017-11-30] MEDS: SCOPOLAMINE 1.5 MG PATCH TD PRN (06:17)
[2017-11-30] MEDS: DOCUSATE SOD/SENNA 1 EACH TAB PO SCH ×2 (09:26→20:57)
[2017-11-30] MEDS: DEXAMETHASONE 4 MG TAB PO SCH (09:26)
[2017-11-30] MEDS: NS(*) 0.9% 500 ML BAG 500 ML IV PRN (17:47)
[2017-12-01] MEDS: NS(*) 0.9% 500 ML BAG 500 ML IV PRN (07:59)
[2017-12-01] MEDS: LORazepam 2 MG/ML VIAL IVP PRN (08:00)
[2017-12-01] MEDS ORDERED: NALOXONE HCL 0.4 MG/ML VIAL IVP PRN (08:25)
[2017-12-01] MEDS: MORPHINE 1 MG/ML 30 ML PCA IV PRN (08:30)
[2017-12-01] MEDS: DOCUSATE SOD/SENNA 1 EACH TAB PO SCH ×2 (09:06→21:45)
[2017-12-01] MEDS: DEXAMETHASONE 4 MG TAB PO SCH (09:06)
--- NOTE | 2017-12-01 13:11 | Medical Nutrition Therapy ---
Nutrition Anthropometrics Height (Inches): 64.00 Height (Calculated Centimeters: 162.646338 Weight (Pounds): 166 Weight (Calculated Kilograms): 75.296 Obdulio Nutrition Score: Probably Inadequate Obdulio Nutrition Risk Score: 13 Dietary Referral Nutrition Risk Factors: Nutrition Risk Comment: Physical Findings Physical Appearance: Overweight BMI 25-29 Skin Appearance Skin Appearance: Edema Edema Location Modifier: Both Edema Location: Foot Type of Edema: Degree of Edema: Gastrointestinal Symptoms GI Symtoms: Constipation Tube Present: Bowel Sounds: Recent Bowel Pattern: Stool Characteristics: Nutritional Diagnosis Nutritional Risk Acuity 2: Pr Appetite > 3d Nutritional Risk Acuity 3: Cancer Nutritional Acuity: 2-Moderate Nutrition Diagnosis: Inadequate Food Intake Nutrition Etiology: End of Life Care Nutrition Problem/Etiology/Sym: AEB pt consuming small portions at meals. Energy Requirement: 2350 (M- St J X 1.3) Protein Requirement: 90 (1.2gm/kg) Fluid Requirement: 2250 Diet Type: Diet as Tolerated JULIO CESAR/REG Nutrition Intervention: Cont diet as ordered, Encourage intake Nutrition Monitoring & Eval Nutritional Goals Comment: Pt will consume food and fluids as she desires and as is appropriate for comfort care. RD Patient Assessment Time: [address] Assessment Type: RD Assessment Patient Nutrition Acuity: 2-Moderate Follow Up Date: December 07, 2017 Nutritional Comment: Pt admitted for comfort care. Will provide food and fluids as she desires and as is appropriate for comfort care. Currently pt is on a regular diet and eating 75- 100% of small portions. Anticipate decline in appetite and intake as disease progresses. Pt may experience unavoidable wt loss r/t progression of disease. Will cont to monitor. ZE TAVARES December 01, 2017 13:11
--- NOTE | 2017-12-01 14:01 | Hospitalist Progress Note ---
Subjective Progress Notes Subjective The patient states her pain is much better than this morning. She is using morphine per FRONT OFFICE REPRESENTATIVE prn. Physical Exam Vital Signs Date Time Temp Pulse Resp B/P (MAP) Pulse Ox O2 Delivery O2 Flow Rate FiO2 12/01/17 05:37 12 11/30/17 16:59 95 11/30/17 08:05 Room Air 11/29/17 13:40 97.1 96 121/81 (94) Intake and Output 12/02/17 07:00 Intake Total 623 ml Balance 623 ml Intake Oral 120 ml IV Total 503 ml # Bowel Movements 0 General Appearance: Alert, Awake, No Acute Distress Neuro: No Gross deficits Cardiovascular: Other (Slightly tachycardic.) Respiratory: Clear to Auscultation GI: Soft and Non-Tender Extremities: Warm, Perfused Psych: Appropriate Mood & Affect Assessment and Plan Problems: (1) Metastatic melanoma Status: Chronic Assessment & Plan: The [facility] for comfort measures/end-of-life care. She is DNR/DNI. She has been placed on IV morphine for pain control, IV Ativan for anxiety/agitation, IV Phenergan for nausea control. She is also on Senokot S PO BID for bowel regimen.She is still constipated so will add daily Miralax. She has MOM to use prn. Her mobility has significantly declined, so will place Bell cath as well. Will monitor her status closely and modify her treatment as needed. Time Spent on Plan of Care: < 30 min YANA MARIO MD December 01, 2017 14:01
[2017-12-01] MEDS: POLYETHYLENE GLYCOL 17 GM PKT PO SCH (14:41)
[2017-12-01 20:00] VITALS: BP 118/65
[2017-12-02] MEDS: NS(*) 0.9% 500 ML BAG 500 ML IV PRN ×2 (02:03→18:47)
[2017-12-02] MEDS: MORPHINE 1 MG/ML 30 ML PCA IV PRN (05:20)
[2017-12-02] MEDS: LORazepam 2 MG/ML VIAL IVP PRN ×2 (05:20→09:58)
[2017-12-02] MEDS: DOCUSATE SOD/SENNA 1 EACH TAB PO SCH ×2 (09:36→21:00)
[2017-12-02] MEDS: POLYETHYLENE GLYCOL 17 GM PKT PO SCH (09:36)
[2017-12-02] MEDS: DEXAMETHASONE 4 MG TAB PO SCH (09:36)
[2017-12-03] MEDS: DOCUSATE SOD/SENNA 1 EACH TAB PO SCH ×2 (08:57→20:21)
[2017-12-03] MEDS: DEXAMETHASONE 4 MG TAB PO SCH (08:57)
[2017-12-03] MEDS: POLYETHYLENE GLYCOL 17 GM PKT PO SCH (08:58)
[2017-12-03] MEDS: MORPHINE 1 MG/ML 30 ML PCA IV PRN (11:02)
[2017-12-03] MEDS ORDERED: LIDOCAINE/SOD BICARB 8.4% SYR ID ONE (11:20)
[2017-12-03] MEDS: NS(*) 0.9% 500 ML BAG 500 ML IV PRN (13:35)
[2017-12-03] MEDS: SCOPOLAMINE 1.5 MG PATCH TD PRN (20:22)
[2017-12-03] MEDS: PATCH REMOVAL 1 EA TP PRN (20:23)
[2017-12-04] MEDS: NS(*) 0.9% 500 ML BAG 500 ML IV PRN (06:37)
[2017-12-04] MEDS: DEXAMETHASONE 4 MG TAB PO SCH (09:09)
[2017-12-04] MEDS: DOCUSATE SOD/SENNA 1 EACH TAB PO SCH ×2 (09:10→21:57)
[2017-12-04] MEDS: POLYETHYLENE GLYCOL 17 GM PKT PO SCH (09:10)
[2017-12-04] MEDS: MORPHINE 1 MG/ML 30 ML PCA IV PRN (10:20)
[2017-12-04] MEDS ORDERED: BISACODYL 10 MG SUPP PR PRN (10:50)
[2017-12-04] MEDS: LORazepam 2 MG/ML VIAL IVP PRN (21:57)
[2017-12-05] MEDS: NS(*) 0.9% 500 ML BAG 500 ML IV PRN ×2 (00:40→16:37)
[2017-12-05] MEDS: POLYETHYLENE GLYCOL 17 GM PKT PO SCH ×2 (09:00→09:10)
[2017-12-05] MEDS: MORPHINE 1 MG/ML 30 ML PCA IV PRN (09:07)
[2017-12-05] MEDS: DOCUSATE SOD/SENNA 1 EACH TAB PO SCH ×2 (09:10→21:00)
[2017-12-05] MEDS: DEXAMETHASONE 4 MG TAB PO SCH (09:10)
[2017-12-06] MEDS: MORPHINE 1 MG/ML 30 ML PCA IV PRN (06:13)
[2017-12-06] MEDS: POLYETHYLENE GLYCOL 17 GM PKT PO SCH (09:00)
[2017-12-06] MEDS: DOCUSATE SOD/SENNA 1 EACH TAB PO SCH ×2 (09:00→21:00)
[2017-12-06] MEDS: DEXAMETHASONE 4 MG TAB PO SCH (09:58)
[2017-12-06] MEDS: NS(*) 0.9% 500 ML BAG 500 ML IV PRN (09:58)
[2017-12-06] MEDS ORDERED: LIDOCAINE/SOD BICARB 8.4% SYR ID ONE (11:00)
[2017-12-07] MEDS: MORPHINE 1 MG/ML 30 ML PCA IV PRN (04:41)
[2017-12-07] MEDS: LORazepam 2 MG/ML VIAL IVP PRN (04:42)
[2017-12-07] MEDS: NS(*) 0.9% 500 ML BAG 500 ML IV PRN (04:45)
[2017-12-07] MEDS: POLYETHYLENE GLYCOL 17 GM PKT PO SCH (09:00)
[2017-12-07] MEDS: DOCUSATE SOD/SENNA 1 EACH TAB PO SCH ×2 (09:00→20:38)
[2017-12-07] MEDS: DEXAMETHASONE 4 MG TAB PO SCH (09:57)
--- NOTE | 2017-12-07 12:53 | Medical Nutrition Therapy ---
Nutrition Anthropometrics Height (Inches): 64.00 Height (Calculated Centimeters: 162.855058 Weight (Pounds): 166 Weight (Calculated Kilograms): 75.296 Obdulio Nutrition Score: Probably Inadequate Obdulio Nutrition Risk Score: 12 Dietary Referral Nutrition Risk Factors: Nutrition Risk Comment: Nutritional Diagnosis Nutritional Risk Acuity 2: Pr Appetite > 3d Nutritional Risk Acuity 3: Cancer Nutritional Acuity: 2-Moderate Nutrition Diagnosis: Inadequate Food Intake Nutrition Etiology: End of Life Care Nutrition Problem/Etiology/Sym: AEB pt consuming small portions at meals. Energy Requirement: 2350 (M- St J X 1.3) Protein Requirement: 90 (1.2gm/kg) Fluid Requirement: 2250 Diet Type: Diet as Tolerated JULIO CESAR/REG Nutrition Intervention: Cont diet as ordered, Encourage intake Nutrition Monitoring & Eval Nutrition Follow-Up: Fair Intake RD Patient Assessment Time: [address] Assessment Type: RD Re-Assessment Patient Nutrition Acuity: 2-Moderate Follow Up Date: December 13, 2017 Nutritional Comment: Pt admitted for comfort care. Will provide food and fluids as she desires and as is appropriate for comfort care. Currently pt is on a regular diet and eating 75- 100% of small portions. Anticipate decline in appetite and intake as disease progresses. Pt may experience unavoidable wt loss r/t progression of disease. Will cont to monitor. 5/8 Intake average 43% of small to regular portions past 3 days. Will cont to offer food and fluids as pt desires and as appropriate for confort care. ZE TAVARES December 07, 2017 12:53
[2017-12-07] MEDS ORDERED: MORPHINE 1 MG/ML 30 ML PCA IV PRN (15:05)
[2017-12-08] MEDS: MORPHINE 1 MG/ML 30 ML PCA SC PRN ×2 (01:49→18:02)
--- NOTE | 2017-12-08 07:46 | Hospitalist Progress Note ---
Subjective Progress Notes Subjective This patient is on extended care for hospice. Her pain medication was increased yesterday. Patient Complains of: Cardiovascular: No: Chest Pain Respiratory: No: Shortness of Breath Physical Exam Vital Signs Date Time Temp Pulse Resp B/P (MAP) Pulse Ox O2 Delivery O2 Flow Rate FiO2 12/08/17 03:51 Room Air 12/07/17 22:30 16 12/07/17 10:00 93 Cardiovascular: Regular Rate and Rhythm Respiratory: Clear to Auscultation Assessment and Plan Problems: (1) Metastatic melanoma Status: Chronic Assessment & Plan: She is on comfort care. She lost IV access yesterday and her morphine LAWN MOWER OPERATOR was converted to SQ dosing. Her basal rate was also increased and her pain is under better control now. She is also receiving IM lorazepam. ROBERTO ALVARENGA DO December 08, 2017 07:46
[2017-12-08] MEDS: POLYETHYLENE GLYCOL 17 GM PKT PO SCH (09:00)
[2017-12-08] MEDS: DEXAMETHASONE 4 MG TAB PO SCH (09:00)
[2017-12-08] MEDS: DOCUSATE SOD/SENNA 1 EACH TAB PO SCH ×2 (09:00→21:00)
[2017-12-09] MEDS: DEXAMETHASONE 4 MG TAB PO SCH (09:00)
[2017-12-09] MEDS: DOCUSATE SOD/SENNA 1 EACH TAB PO SCH ×2 (09:00→19:39)
[2017-12-09] MEDS: POLYETHYLENE GLYCOL 17 GM PKT PO SCH (10:11)
[2017-12-09] MEDS: MORPHINE 1 MG/ML 30 ML PCA SC PRN ×2 (10:41→23:47)
[2017-12-09] MEDS: SCOPOLAMINE 1.5 MG PATCH TD PRN (14:03)
[2017-12-09] MEDS: PATCH REMOVAL 1 EA TP PRN (14:03)
[2017-12-09] MEDS: LORazepam 2 MG/ML VIAL IM PRN (19:00)
[2017-12-10] MEDS: DOCUSATE SOD/SENNA 1 EACH TAB PO SCH ×2 (09:00→21:00)
[2017-12-10] MEDS: POLYETHYLENE GLYCOL 17 GM PKT PO SCH (09:00)
[2017-12-10] MEDS: DEXAMETHASONE 4 MG TAB PO SCH (09:00)
[2017-12-10] MEDS: MORPHINE 1 MG/ML 30 ML PCA SC PRN (14:13)
[2017-12-10] MEDS ORDERED: MORPHINE 1 MG/ML 30 ML PCA SC PRN (16:30)
[2017-12-11] MEDS: DOCUSATE SOD/SENNA 1 EACH TAB PO SCH (09:00)
[2017-12-11] MEDS: POLYETHYLENE GLYCOL 17 GM PKT PO SCH (09:00)
[2017-12-11] MEDS: DEXAMETHASONE 4 MG TAB PO SCH (09:00)
[2017-12-11] MEDS: MORPHINE 1 MG/ML 30 ML PCA SC PRN ×2 (10:30→11:59)
[2017-12-11] MEDS: LORazepam 2 MG/ML VIAL IM PRN (12:17)
--- NOTE | 2017-12-11 20:42 | Death Summary ---
Pronounced Date: December 11, 2017 Pronounced Time: 16:06 Preliminary Cause of : Cardiopulmonary arrest End of life care Terminal stage of Melanoma Assessment: Metastatic disease of Melanoma History of Present Illness Please see admission history and physical for details. Hospital Course 12/11: Ms. Dill 42yo female with diffusely metastatic melanoma who has been receiving care through [facility]. She has noted increasing weakness and persistent decline in her ability to care for herself. Her metastatic disease has been progressive. She has now elected to pursue comfort measures/end-of- life care. She will be admitted to [facility] beta suite. She was admitted to [facility] beta suite on 12/01/17 for comfort measures/end-of- life care. She was DNR/DNI. She was placed on IV morphine for pain control, IV Ativan for anxiety/agitation, IV Phenergan for nausea control. Will also start Senokot S PO BID for bowel regimen. Her mobility has significantly declined, so Bell cath was placed as well. She was pronounced on 12/11/2017 at 1606pm. I discussed the case with her family and family was comfortable. Copies to: TRACY MARINO MD Medical Records to be sent: Summary ELI HENRIQUEZ MD December 11, 2017 20:42
== END 2017-12-11 16:06 | disposition expired | DRG 951 ==
LOC: ECF 13:40
PROVIDERS: ADMIT Internal Medicine; ATTEND Internal Medicine
DX: Z51.5 Encounter for palliative care (principal); C79.31 Secondary malignant neoplasm of brain; C49.9 Malignant neoplasm of connective and soft tissue, unspecified; Z66 Do not resuscitate; K59.00 Constipation, unspecified; I46.9 Cardiac arrest, cause unspecified; Z91.040 Latex allergy status; Z92.21 Personal history of antineoplastic chemotherapy; Z92.3 Personal history of irradiation
CPT/HCPCS: J2060; J2270; J7040; J8540